=== PATIENT | male | born 1960 | race Caucasian/White ===

== ENCOUNTER 2016-06-17 20:45 | Emergency (ER) | payer OTHER ==
[2016-06-17] MEDS ORDERED: NS 1,000 ML IV ONE (21:29)
--- NOTE | 2016-06-17 21:29 | EDPHY ---
H & P Stated Complaint: diff urinating, pain in prostate HPI/ROS: HPI CHIEF COMPLAINT: Increased urinary frequency, dysuria, "My prostate may be inflamed" HISTORY OF PRESENT ILLNESS: This patient very pleasant 56-year-old male significant past medical history for neuroendocrine tumor, presents emergency room with progressively over the last week increased urinary frequency, dysuria , and some pain in between his scrotum and anus. He thinks he may have a prostate infection. patient tells me that he is on a trial of cancer medication is followed by Dr. Perez. he denies chills, rigors, fever, flank pain, blood in his urine. under the patient has been taking Bactrim x2 days and Augmentin x2 days prescribed by his primary care doctor. No formal urinalysis was performed. Past Medical History: Neuroendocrine tumor Past Surgical History: no significant surgical history Social History: denies daily use drugs alcohol tobacco products Family History: noncontributory ROS REVIEW OF SYSTEMS: A comprehensive 10 point review of systems is otherwise negative aside from elements mentioned in the history of present illness. Exam Constitutional triage nursing summary reviewed, vital signs reviewed, awake/ alert. Eyes normal conjunctivae and sclera, EOMI, PERRLA. HENT normal inspection, atraumatic, moist mucus membranes, no epistaxis, neck supple/ no meningismus, no raccoon eyes. Respiratory clear to auscultation bilaterally, normal breath sounds, no respiratory distress, no wheezing. Cardiovascular rate normal, regular rhythm, no murmur, no edema, distal pulses normal. Gastrointestinal soft, non-tender, no rebound, no guarding, normal bowel sounds, no distension, no pulsatile mass. Genitourinary exam: normal exam no testicular tenderness, circumcised , no lesions, no drainage, no discharge, no tenderness between his scrotum and anus where he is complaining of pain no signs of cellulitis or abscess. Musculoskeletal no midline vertebral tenderness, full range of motion, no calf swelling, no tenderness of extremities, no meningismus, good pulses, neurovascularly intact. Skin pink, warm, & dry, no rash, skin atraumatic. Neurologic awake, alert and oriented x 3, AAOx3, moves all 4 extremities equally, motor intact, sensory intact, CN II-XII intact, normal cerebellar, normal vision, normal speech. Psychiatric normal mood/affect. Heme/Lymph/Immune no lymphadenopathy. Differential Diagnosis: includes but is not limited to in a particular order, UTI, cystitis, prostatitis Medical Decision Making: This patient had an IV established obtain basic blood work checked basic blood work CBC and electrolytes, check urinalysis, there is no evidence of Kirk gangrene abscess or cellulitis or skin inflammation in between the scrotum and anus. I do not appreciate a mass. Patient may need a CT and pelvis with IV contrast evaluate this lower pelvic rectal perineal pain. Looking for a fluid collection, or inflammation Re-evaluation: CT scan of the abdomen pelvis with IV contrast The results of the study are negative for acute inflammatory process specifically no evidence of prostatitis , abscess, perirectal inflammation. it is noted that there is a rectal mass similar in size from previous CT scan also it is noted there are some new neuroendocrine lesions. The study was read by Dr. Kaplan. I viewed the images myself on the PACS system. [id number]: I did explain to the patient his CT results I did explain that has severe constipation on this as well. He does take daily narcotics, he most likely is severely constipated after taking narcotics. He does tell me that he tries to have a bowel movement once per day however he has not had 1 in 24 hours he will take stool softeners. He has no abdominal pain at this time, no nausea vomiting or fever. I explained that he should complete his course of antibiotics that he has been prescribed for his UTI however there is no indication that he has a urinary tract infection here is urinalysis clean, no white count, electrolytes appropriate good kidney function. I also explained that he needs return to the ER if he develops worsening abdominal pain, fever, vomiting. I also explained he should follow up Dr. Perez his cancer doctor about his CT results today. I did print his lab work and give them to him. I am unable to print his CT at this time is is not formally dictated. Prescription for MiraLax given patient understands return if worsening symptoms questions or concerns. On exam specifically rectal scrotal perineal I do not see any signs of infection specifically there is no signs of Kirk gangrene, abscess, cellulitis, redness, swelling or significant tenderness. He understands return if worsening symptoms. Source: Patient - Personal History Current Tetanus Diphtheria and Acellular Pertussis (TDAP): Yes - Medical/Surgical History Hx Asthma: No Hx Chronic Respiratory Disease: No Hx Diabetes: No Hx Cardiac Disease: No Hx Renal Disease: No Hx Cirrhosis: No Hx Alcoholism: No Hx HIV/AIDS: No Hx Splenectomy or Spleen Trauma: No Other PMH: PMH: NEURO ENDOCRINE TUMORS. PSH: KNEE - Social History Smoking Status: Never smoked Constitutional: Initial Vital Signs Temperature (C) 36.4 C 06/17/16 20:50 Heart Rate 90 06/17/16 20:50 Respiratory Rate 20 06/17/16 20:50 Blood Pressure 111/77 06/17/16 20:50 O2 Sat (%) 96 06/17/16 20:50 O2 Delivery Mode Room Air Allergies/Adverse Reactions: No Known Allergies Allergy (Unverified 06/17/16 20:49) Home Medications: Medication Instructions Recorded oxyCODONE IR [Oxycodone Ir (RX)] 5 mg PO 05/16/14 HYDROCODONE BIT/ACETAMINOPHEN 04/15/16 Polyethylene Glycol 3350 [Miralax 17 gm PO DAILY #2 pkt 06/17/16 17 gm (*)] Medical Decision Making - Data Points Laboratory Results: Laboratory Results 06/17/16 21:40 06/17/16 21:40 06/17/16 06/17/16 21:40 20:55 WBC 7.70 10^3/uL (3.80-9.50) RBC 4.44 10^6/uL (4.40-6.38) Hgb 13.8 g/dL (13.7-17.5) Hct 40.2 % (40.0-51.0) MCV 90.5 fL (81.5-99.8) MCH 31.1 pg (27.9-34.1) MCHC 34.3 g/dL (32.4-36.7) RDW 13.7 % (11.5-15.2) Plt Count 268 10^3/uL (150-400) MPV 10.1 fL (8.7-11.7) Neut % (Auto) 75.4 H % (39.3-74.2) Lymph % (Auto) 14.3 L % (15.0-45.0) [place] % (Auto) 8.6 % (4.5-13.0) Eos % (Auto) 0.9 % (0.6-7.6) Baso % (Auto) 0.5 % (0.3-1.7) Nucleat RBC Rel Count 0.0 % (0.0-0.2) Absolute Neuts (auto) 5.81 10^3/uL (1.70-6.50) Absolute Lymphs (auto) 1.10 10^3/uL (1.00-3.00) Absolute Monos (auto) 0.66 10^3/uL (0.30-0.80) Absolute Eos (auto) 0.07 10^3/uL (0.03-0.40) Absolute Basos (auto) 0.04 10^3/uL (0.02-0.10) Absolute Nucleated RBC 0.00 10^3/uL (0-0.01) Immature Gran % 0.3 % (0.0-1.1) Immature Gran # 0.02 10^3/uL (0.00-0.10) Sodium 136 mEq/L (134-144) Potassium 4.7 mEq/L (3.5-5.2) Chloride 99 mEq/L (97-110) Carbon Dioxide 23 mEq/l (22-31) Anion Gap 14 mEq/L (8-16) BUN 21 mg/dL (7-23) Creatinine 1.1 mg/dL (0.7-1.3) Estimated GFR > 60 Glucose 89 mg/dL (70-100) Calcium 9.6 mg/dL (8.5-10.4) Urine Color YELLOW Urine Appearance CLEAR Urine pH 6.0 (5.0-7.5) Ur Specific [place] 1.003 (1.002-1.030) Urine Protein NEGATIVE (NEGATIVE) Urine Ketones NEGATIVE (NEGATIVE) Urine Blood NEGATIVE (NEGATIVE) Urine Nitrate NEGATIVE (NEGATIVE) Urine Bilirubin NEGATIVE (NEGATIVE) Urine Urobilinogen NEGATIVE EU (0.2-1.0) Ur Leukocyte Esterase NEGATIVE (NEGATIVE) Ur Culture Indicated? NOT INDICATED (NI) Urine Glucose NEGATIVE (NEGATIVE) Medications Given: Discontinued Medications Sodium Chloride (Ns) 1,000 mls @ 0 mls/hr IV ONCE ONE PRN Reason: Wide Open Stop: 06/17/16 21:30 Last Admin: 06/17/16 21:56 Dose: 1,000 mls Morphine Sulfate (Morphine) 4 mg IVP EDNOW ONE Stop: 06/17/16 21:37 Last Admin: 06/17/16 21:57 Dose: 4 mg Ondansetron HCl (Zofran) 4 mg IVP EDNOW ONE Stop: 06/17/16 21:37 Last Admin: 06/17/16 21:57 Dose: 4 mg Departure - Departure Disposition: Home, Routine, Self-Care Clinical Impression: Constipation Qualifiers: Constipation type: slow transit constipation Qualifier Code: (K59.01) Slow transit constipation Condition: Good Instructions: Constipation (ED) Additional Instructions: 1. Please return to the emergency room if you develop any worsening symptoms includes worsening abdominal pain, fever, vomiting. please take MiraLax as prescribed. Please follow up with Dr. Perez 2. please return if he develops worsening pain, fever, swelling or questions or concerns Referrals: Khurram Perez MD [Primary Care Provider] - As per Instructions Prescriptions: Polyethylene Glycol 3350 [Miralax 17 gm (*)] 17 gm PO DAILY #2 pkt
[2016-06-17] MEDS ORDERED: ONDANSETRON 4 MG/2 ML VIAL IVP ONE (21:36)
[2016-06-17 21:38] LABS: COLOR YELLOW; LEUKOCYTE ESTERASE,URINE NEGATIVE (NEGATIVE); NITRITE,URINE NEGATIVE (NEGATIVE)
[2016-06-17 21:49] LABS: % IMMATURE GRANULYOCYTES 0.3 % (0.0-1.1); ABSOLUTE IMMATURE GRANULOCYTES 0.02 10^3/uL (0.00-0.10); ADD DIFF? NO; ADD MORPH? NO; ADD SCAN? NO; ATYPICAL LYMPHOCYTE FLAG 10 (0-99); FRAGMENT RBC FLAG 0 (0-99); HEMATOCRIT 40.2 % (40.0-51.0); HEMOGLOBIN 13.8 g/dL (13.7-17.5); LEFT SHIFT FLG 0 (0-99); LIPEMIA HEMOLYSIS FLAG 90 (0-99); MEAN CELL HEMOGLOBIN 31.1 pg (27.9-34.1); MEAN CELL HEMOGLOBIN CONCENTR. 34.3 g/dL (32.4-36.7); MEAN CELL VOLUME 90.5 fL (81.5-99.8); MEAN PLATELET VOLUME 10.1 fL (8.7-11.7); PLATELET CLUMPS FLAG 10 (0-99); PLATELET COUNT 268 10^3/uL (150-400); RED BLOOD CELL COUNT 4.44 10^6/uL (4.40-6.38); RED CELL DISTRIBUTION WIDTH 13.7 % (11.5-15.2)
[2016-06-17 22:04] LABS: ANION GAP 14 mEq/L (8-16); CALCIUM 9.6 mg/dL (8.5-10.4); CARBON DIOXIDE 23 mEq/l (22-31); CHLORIDE 99 mEq/L (97-110); CREATININE 1.1 mg/dL (0.7-1.3); GLOMERULAR FILTRATION RATE > 60; GLUCOSE 89 mg/dL (70-100); POTASSIUM 4.7 mEq/L (3.5-5.2); SODIUM 136 mEq/L (134-144)
[2016-06-17 22:06] VITALS: PULSE 72; RESP 12
[2016-06-17] MEDS ORDERED: IOPAMIDOL (ISOVUE-300) 50 ML VIAL IV ONE (22:23)
--- NOTE | 2016-06-17 23:51 | CT ---
CT Scan of the Abdomen and Pelvis (With Contrast) June 17, 2016 Indication: Low pelvic pain with urination. Suspected prostatitis. Known metastatic neuroendocrine t umor. Technique: No oral or rectal contrast. 90 mL of Isovue 300 were given intravenously by machine power injection. Multidetector helical CT imaging was performed from the diaphragm to the symphysis pubis . Dose reduction techniques were utilized. Comparison: CT abdomen pelvis dated April 15, 2016 Findings: No rim-enhancing fluid collection within the prostate gland. The previously noted dense hem orrhage in the right peripheral zone of the prostate gland has resolved. No subcutaneous gas, fluid c ollection, or stranding in the perineum. The urinary bladder is moderately distended (less so Novembe r 2015). No hydronephrosis or ureteral calculi. A 1 cm cyst with peripheral punctate calcification em anating off the right kidney is unchanged. The right pararectal mass on image 260 of series 4, posterior and separate from the prostate gland, m easuring 4.1 x 3.8 cm is unchanged since April 2016. Numerous low attenuation lesions scattered throughout the liver have minimally increased in volume si nce April 2016. A insurance sales representative lesion in the dome of the liver adjacent the middle hepatic vein on image 49 of series 4 now measures 1.6 x 1.6 cm (previously 1.0 x 1.0 cm). Two enlarged right commo n iliac lymph nodes have increased in size. For example, a right common iliac node image 170 of serie s 4 now measures 2.3 x 1.9 cm (previously 2.3 x 1.5 cm). Several tiny implants are present in the ret roperitoneal space adjacent bilateral kidneys and psoas muscles. Several new sclerotic lesions have developed and T10, T11, anterior L5 vertebral body, and left-sided ilium since April 2016. The ascending and transverse colon is redundant and markedly filled with stool. The low descending an d sigmoid colon are decompressed with limited volume retained stool. A transition in the left mid abd omen on images 104 through 153 of series 4 is present without evidence of a discrete mass. Small yocasta l is normal caliber with increased intraluminal fluid. The lung bases are clear. No pleural effusions. The spleen, pancreas, gallbladder, and adrenal glands are normal. Impression: 1. No evidence of prostatic abscess or localized inflammatory process in the perineum or pelvis. 2. No hydronephrosis or ureteral calculi. 3. Suspect progression of disease evidenced by increasing in size liver lesions and right common aurelio c lymphadenopathy. 4. New and increasing sclerotic lesions throughout the spine and pelvis may represent progression of disease or reparative response if the patient is undergoing chemotherapy. 5. Marked constipation. Equivocal low-grade partial large bowel obstruction in the left mid abdomen ( similar April 2016). Comment: Results were discussed with Dr. Louie 11:30 p.m. June 17, 2016.
[2016-06-17 23:56] VITALS: BP 110/65; TEMP 98.6; O2SAT 94
== END 2016-06-17 23:57 | disposition home or self-care (01) ==
DX: K59.01 Slow transit constipation (principal)
CPT/HCPCS: 74177; 96361; 96374; 96375; 99285; J2405; Q9967

== ENCOUNTER → 2016-06-23 | Outpatient (CLI) | payer OTHER ==
[~2016-06-23] MED LIST: IOPAMIDOL (ISOVUE-300) 50 ML VIAL IV ONE
--- NOTE | 2016-06-23 12:53 | CT ---
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 Comparison: June 23, 2016 CT abdomen and pelvis at [facility], and April 03, 2016 [facility] CT scan. Technique: 2.5-mm contiguous helical axial scanning through the pelvis after the uneventful administ ration of 90 mL of Isovue-300. Routine reconstructions were performed in the coronal and sagittal gentry barak. Dose reduction technique was performed. Findings: The perirectal mass best seen on series 3 image 140 on today's examination measured 3.2 x 3.8. This is slightly smaller than the previous study from June 17, however, there is slightly mo re air in this area making the measurement likely a little more accurate. This is unchanged compared to the March study. The retroperitoneal implant seen today on series 3 image 35, measuring 17 x 24 mm, has increased in size (previously 14 x 18 mm). There is increasing sclerotic disease in the pelvi s and lower lumbar spine. Impression: 1. Increasing retroperitoneal adenopathy and increasing bony metastatic disease as compared to 2015. This represents progression of disease. The rectal mass is stable. 2. Interval resolution of previous suspected partial small bowel obstruction.
== END ==
LOC: FIMAGING 10:34
PROVIDERS: ATTEND Internal Medicine Hematology & Oncology
DX: C79.51 Secondary malignant neoplasm of bone (principal); C7A.026 Malignant carcinoid tumor of the rectum; R59.0 Localized enlarged lymph nodes
CPT/HCPCS: 72193; Q9967

== ENCOUNTER 2017-03-02 23:18 | Emergency (ER) | payer OTHER ==
[2017-03-02 23:23] VITALS: RESP 18; O2SAT 99
[2017-03-02] MEDS: NS 1,000 ML IV ONE (23:47)
[2017-03-03 00:05] LABS: % IMMATURE GRANULYOCYTES 0.3 % (0.0-1.1); ABSOLUTE IMMATURE GRANULOCYTES 0.01 10^3/uL (0.00-0.10); ADD DIFF? NO; ADD MORPH? NO; ADD SCAN? NO; ATYPICAL LYMPHOCYTE FLAG 0 (0-99); FRAGMENT RBC FLAG 0 (0-99); HEMOGLOBIN 14.4 g/dL (13.7-17.5); LEFT SHIFT FLG 20 (0-99); LIPEMIA HEMOLYSIS FLAG 90 (0-99); MEAN CELL HEMOGLOBIN 28.2 pg (27.9-34.1); MEAN CELL HEMOGLOBIN CONCENTR. 34.3 g/dL (32.4-36.7); MEAN CELL VOLUME 82.2 fL (81.5-99.8); MEAN PLATELET VOLUME 10.8 fL (8.7-11.7); PLATELET CLUMPS FLAG 10 (0-99); PLATELET COUNT 143 10^3/uL (150-400); RED BLOOD CELL COUNT 5.11 10^6/uL (4.40-6.38); RED CELL DISTRIBUTION WIDTH 13.7 % (11.5-15.2)
[2017-03-03 00:16] LABS: ALANINE AMINOTRANSFERASE 39 IU/L (21-72); ALBUMIN 4.8 g/dL (3.5-5.0); ALKALINE PHOSPHATASE 62 IU/L (38-126); ANION GAP 17 mEq/L (8-16); ASPARTATE AMINOTRANSFERASE 30 IU/L (17-59); BILIRUBIN,TOTAL 0.8 mg/dL (0.1-1.4); BILIRUBIN-CONJUGATED 0.3 mg/dL (0.0-0.5); BILIRUBIN-UNCONJUGATED 0.5 mg/dL (0.0-1.1); CALCIUM 8.6 mg/dL (8.5-10.4); CARBON DIOXIDE 19 mEq/l (22-31); CHLORIDE 103 mEq/L (97-110); CREATININE 1.1 mg/dL (0.7-1.3); GLOMERULAR FILTRATION RATE > 60; GLUCOSE 114 mg/dL (70-100); POTASSIUM 3.2 mEq/L (3.5-5.2); SODIUM 139 mEq/L (134-144); TOTAL PROTEIN 7.7 g/dL (6.3-8.2)
[2017-03-03] MEDS ORDERED: IOPAMIDOL (ISOVUE-300) 100 ML BTL ONE (00:38)
--- NOTE | 2017-03-03 00:58 | EDPHY ---
H & P Stated Complaint: left Abd pain, diarrhea with bright red blood x10 days - Personal History Current Tetanus/Diphtheria Vaccine: Unsure Current Tetanus Diphtheria and Acellular Pertussis (TDAP): Unsure - Medical/Surgical History Hx Asthma: No Hx Chronic Respiratory Disease: No Hx Diabetes: No Hx Cardiac Disease: No Hx Renal Disease: No Hx Cirrhosis: No Hx Alcoholism: No Hx HIV/AIDS: No Hx Splenectomy or Spleen Trauma: No Other PMH: PMH: NEURO ENDOCRINE TUMORS. PSH: KNEE - Social History Smoking Status: Never smoked Time Seen by Provider: 03/02/17 23:35 HPI/ROS: Chief complaint: Abdominal pain with bloody diarrhea History of present illness: This is a 56-year-old male who presents to the emergency department for evaluation of abdominal pain with bloody diarrhea. Patient reports he has been traveling through [place] for the last few weeks. While there he developed the abdominal pain. He states he has had intermittent diarrhea while there. He has had some nausea and vomiting. He returned home this evening. Upon getting off of the airplane he had a bout of watery diarrhea that had bright red blood in it. He therefore presents here for further evaluation and care. He states the pain is primarily in the left, lower aspect of the abdomen. He denies other associated signs or symptoms including no fevers, no urinary symptoms. Review of systems: A 10 point review of systems was obtained and other than described above was negative (Damián Bates) - Physical Exam Exam: General Appearance: Alert, nontoxic. Eyes: Pupils equal and round no pallor or injection. ENT, Mouth: Mucous membranes moist. Respiratory: There are no retractions, lungs are clear to auscultation. Cardiovascular: Regular rate and rhythm. Gastrointestinal: Bowel sounds present. Abdomen is soft and nondistended. Diffuse tenderness when maximal intensity in the left lower quadrant. No peritoneal signs. Neurological: Alert and oriented x4. Strength and sensation intact and symmetrical. Skin: Warm and dry, no rashes. Musculoskeletal: Neck is supple non tender. Extremities are symmetrical, full range of motion. Psychiatric: Patient is oriented X 3, there is no agitation. (Damián Bates) Constitutional: Initial Vital Signs Temperature (C) 36.5 C 03/02/17 23:20 Heart Rate 96 03/02/17 23:20 Respiratory Rate 18 03/02/17 23:20 Blood Pressure 116/85 H 03/02/17 23:20 O2 Sat (%) 99 03/02/17 23:20 O2 Delivery Mode Room Air Allergies/Adverse Reactions: No Known Allergies Allergy (Verified 03/02/17 23:24) Home Medications: Medication Instructions Recorded oxyCODONE IR [Oxycodone Ir (RX)] 5 mg PO 05/16/14 HYDROCODONE BIT/ACETAMINOPHEN 04/15/16 Polyethylene Glycol 3350 [Miralax 17 gm PO DAILY #2 pkt 06/17/16 17 gm (*)] AFINITOR 03/02/17 traMADol 03/02/17 Medical Decision Making ED Course/Re-evaluation: Patient seen under the supervision of my secondary supervising physician Dr. Alverto Louie for abdominal pain and bloody diarrhea. Initial evaluation was begun. Care of patient is turned over to my attending physician Dr. Louie at end of shift pending CT and stool studies. (Damián Bates) 0118: CT report called to me by Dr. Arun Figueredo. There is significant progression of the metastatic disease of his neuroendocrine tumors. Additionally he has fluid-filled small bowel and large bowel most likely consistent with enteritis. There is no evidence obstruction. Or bowel wall thickening. No free air or free fluid. [id number]: I did go re-evaluate the patient. Resting comfortably. Abdomen is soft nontender. No significant left lower quadrant pain. Feels much better after IV fluids. CT scan reviewed. I updated the patient on these findings. Stool studies pending. He would like to go home. He understands call for stool study results. Additionally understands return to the ER for worsening abdominal pain fever vomiting. Additionally do recommend he follows up with his neuroendocrine tumor physician about a CT scan findings today. (Alverto Louie) Differential Diagnosis: Included but not limited to diverticulitis, colitis, biliary tract disease, pancreatitis, traveler's diarrhea (Damián Bates) - Data Points Laboratory Results: Laboratory Results 03/02/17 23:44 03/02/17 23:44 03/03/17 03/03/17 03/02/17 02:35 00:45 23:44 WBC RBC Hgb Hct MCV MCH MCHC RDW Plt Count MPV Neut % (Auto) Lymph % (Auto) [place] % (Auto) Eos % (Auto) Baso % (Auto) Nucleat RBC Rel Count Absolute Neuts (auto) Absolute Lymphs (auto) Absolute Monos (auto) Absolute Eos (auto) Absolute Basos (auto) Absolute Nucleated RBC Immature Gran % Immature Gran # Sodium 139 mEq/L mEq/L (134-144) Potassium 3.2 mEq/L L mEq/L (3.5-5.2) Chloride 103 mEq/L mEq/L (97-110) Carbon Dioxide 19 mEq/l L mEq/l (22-31) Anion Gap 17 mEq/L H mEq/L (8-16) BUN 28 mg/dL H mg/dL (7-23) Creatinine 1.1 mg/dL mg/dL (0.7-1.3) Estimated GFR > 60 Glucose 114 mg/dL H mg/dL (70-100) Calcium 8.6 mg/dL mg/dL (8.5-10.4) Total Bilirubin 0.8 mg/dL mg/dL (0.1-1.4) Conjugated Bilirubin 0.3 mg/dL mg/dL (0.0-0.5) Unconjugated Bilirubin 0.5 mg/dL mg/dL (0.0-1.1) AST 30 IU/L IU/L (17-59) ALT 39 IU/L IU/L (21-72) Alkaline Phosphatase 62 IU/L IU/L (38-126) Total Protein 7.7 g/dL g/dL (6.3-8.2) Albumin 4.8 g/dL g/dL (3.5-5.0) Lipase 60 IU/L IU/L (23-300) Urine Color YELLOW Urine Appearance CLEAR Urine pH 5.0 (5.0-7.5) Ur Specific [place] > 1.035 H (1.002-1.030) Urine Protein NEGATIVE (NEGATIVE) Urine Ketones 1+ H (NEGATIVE) Urine Blood NEGATIVE (NEGATIVE) Urine Nitrate NEGATIVE (NEGATIVE) Urine Bilirubin NEGATIVE (NEGATIVE) Urine Urobilinogen NEGATIVE EU EU (0.2-1.0) Ur Leukocyte Esterase NEGATIVE (NEGATIVE) Urine RBC NONE SEEN /hpf /hpf (0-3) Urine WBC 3-5 /hpf H /hpf (0-3) Ur Epithelial Cells TRACE /lpf /lpf (NONE-1+) Urine Glucose NEGATIVE (NEGATIVE) Stool Concentration Pending Stool Occult Bld Scrn NEGATIVE (NEGATIVE) Stool Ova & Parasites Pending Parasite Trichrome Pending Direct Microscop Exam Pending 03/02/17 23:44 WBC 2.92 10^3/uL L 10^3/uL (3.80-9.50) RBC 5.11 10^6/uL 10^6/uL (4.40-6.38) Hgb 14.4 g/dL g/dL (13.7-17.5) Hct 42.0 % % (40.0-51.0) MCV 82.2 fL fL (81.5-99.8) MCH 28.2 pg pg (27.9-34.1) MCHC 34.3 g/dL g/dL (32.4-36.7) RDW 13.7 % % (11.5-15.2) Plt Count 143 10^3/uL L 10^3/uL (150-400) MPV 10.8 fL fL (8.7-11.7) Neut % (Auto) 80.3 % H % (39.3-74.2) Lymph % (Auto) 9.9 % L % (15.0-45.0) [place] % (Auto) 6.8 % % (4.5-13.0) Eos % (Auto) 2.4 % % (0.6-7.6) Baso % (Auto) 0.3 % % (0.3-1.7) Nucleat RBC Rel Count 0.0 % % (0.0-0.2) Absolute Neuts (auto) 2.34 10^3/uL 10^3/uL (1.70-6.50) Absolute Lymphs (auto) 0.29 10^3/uL L 10^3/uL (1.00-3.00) Absolute Monos (auto) 0.20 10^3/uL L 10^3/uL (0.30-0.80) Absolute Eos (auto) 0.07 10^3/uL 10^3/uL (0.03-0.40) Absolute Basos (auto) 0.01 10^3/uL L 10^3/uL (0.02-0.10) Absolute Nucleated RBC 0.00 10^3/uL 10^3/uL (0-0.01) Immature Gran % 0.3 % % (0.0-1.1) Immature Gran # 0.01 10^3/uL 10^3/uL (0.00-0.10) Sodium Potassium Chloride Carbon Dioxide Anion Gap BUN Creatinine Estimated GFR Glucose Calcium Total Bilirubin Conjugated Bilirubin Unconjugated Bilirubin AST ALT Alkaline Phosphatase Total Protein Albumin Lipase Urine Color Urine Appearance Urine pH Ur Specific [place] Urine Protein Urine Ketones Urine Blood Urine Nitrate Urine Bilirubin Urine Urobilinogen Ur Leukocyte Esterase Urine RBC Urine WBC Ur Epithelial Cells Urine Glucose Stool Concentration Stool Occult Bld Scrn Stool Ova & Parasites Parasite Trichrome Direct Microscop Exam Medications Given: Discontinued Medications Sodium Chloride (Ns) 1,000 mls @ 0 mls/hr IV EDNOW ONE; Wide Open PRN Reason: Protocol Stop: 03/02/17 23:41 Last Admin: 03/02/17 23:47 Dose: 1,000 mls Sodium Chloride (Ns) 1,000 mls @ 0 mls/hr IV EDNOW ONE; Wide Open PRN Reason: Protocol Stop: 03/03/17 01:04 Last Admin: 03/03/17 01:30 Dose: 1,000 mls Ondansetron HCl (Zofran) 4 mg IVP EDNOW ONE Stop: 03/03/17 00:38 Last Admin: 03/03/17 02:43 Dose: Not Given Departure - Departure Disposition: Home, Routine, Self-Care Clinical Impression: Diarrhea Qualifiers: Diarrhea type: unspecified type Qualified Code(s): R19.7 - Diarrhea, unspecified Abdominal pain Qualifiers: Abdominal location: generalized Qualified Code(s): R10.84 - Generalized abdominal pain Condition: Good Instructions: Acute Diarrhea (ED), Acute Abdominal Pain (ED) Additional Instructions: 1. Please return to the emergency room if you have worsening abdominal pain fever or vomiting. Referrals: NONE *PRIMARY CARE P,. [Primary Care Provider] - As per Instructions
[2017-03-03] MEDS ORDERED: NS 1,000 ML IV ONE (01:03)
[2017-03-03] MEDS: NS 1,000 ML IV ONE (01:30)
[2017-03-03] MEDS: ONDANSETRON 4 MG/2 ML VIAL IVP ONE (02:43)
[2017-03-03 02:52] LABS: OCCULT BLOOD FECES NEGATIVE (NEGATIVE)
[2017-03-03 02:54] LABS: COLOR YELLOW; LEUKOCYTE ESTERASE,URINE NEGATIVE (NEGATIVE); NITRITE,URINE NEGATIVE (NEGATIVE)
[2017-03-03 02:58] LABS: RBC,URINE NONE SEEN /hpf (0-3)
[2017-03-03 03:54] VITALS: BP 126/74; PULSE 88; TEMP 97.5
== END 2017-03-03 03:53 | disposition home or self-care (01) ==
DX: R19.7 Diarrhea, unspecified (principal); R10.84 Generalized abdominal pain; E86.9 Volume depletion, unspecified
CPT/HCPCS: 74177; 96360; 96361; 99285; J2405; Q9967

== ENCOUNTER → 2017-04-27 | Outpatient (CLI) | payer OTHER | LOC: FIMAGING 16:54 | PROVIDERS: ATTEND Internal Medicine Hematology & Oncology | DX: M79.89 Other specified soft tissue disorders (principal); C7A.026 Malignant carcinoid tumor of the rectum; C80.1 Malignant (primary) neoplasm, unspecified ==

== ENCOUNTER → 2017-05-15 | Outpatient (CLI) | payer OTHER | LOC: BMCIMAGING 09:22 | PROVIDERS: ATTEND Podiatrist Foot & Ankle Surgery | DX: S86.111A Strain of other muscle(s) and tendon(s) of posterior muscle group at lower leg level, right leg, initial encounter (principal); X58.XXXA Exposure to other specified factors, initial encounter; M17.11 Unilateral primary osteoarthritis, right knee ==

== ENCOUNTER 2017-05-17 23:55 | Emergency (ER) | payer OTHER ==
--- NOTE | 2017-05-18 00:06 | EDPHY ---
H & P Stated Complaint: "3 DAYS ACHINESS THINK I HAVE A VIRUS" Source: Patient Exam Limitations: No limitations - Personal History Current Tetanus Diphtheria and Acellular Pertussis (TDAP): No - Medical/Surgical History Hx Asthma: No Hx Chronic Respiratory Disease: No Hx Diabetes: No Hx Cardiac Disease: No Hx Renal Disease: No Hx Cirrhosis: No Hx Alcoholism: No Hx HIV/AIDS: No Hx Splenectomy or Spleen Trauma: No Other PMH: PMH: NEURO ENDOCRINE TUMORS. PSH: KNEE - Social History Smoking Status: Never smoked Time Seen by Provider: 05/18/17 00:05 HPI/ROS: HPI: This is a 57-year-old male who presents with Chief Complaint: "3 DAYS ACHINESS THINK I HAVE A VIRUS" Location: Body Quality: Achiness Duration: 1 day Signs and Symptoms: No fever, no chills, no nausea, no vomiting, no cough, no sore throat, no ear pain, no abdominal pain, chest pain 1 shortness of breath Timing: Sudden, constant Severity: Moderate to severe Context: Patient has a history of neuroendocrine tumor status post radiation and stopped taking oral chemotherapy medication 3 days ago. He reports for the last 2 days he has felt fine but today "it him like a bus." Complains of generalized, constant body aches and moderate fatigue since yesterday around 2 PM. He is also worried he may have a virus but he is not sure. He researched on the Internet and thinks it could be medication withdrawal. He denies fever, nausea, vomiting, cough, sore throat. Followed by Dr. Khurram Perez. Eating and drinking normally. No urinary symptoms. Modifying Factors: None Comment: ROS: see HPI Constitutional: No fever, no chills, no weight loss Eyes: No blurred vision Respiratory: No shortness of breath, no cough Cardiovascular: No chest pain Gastrointestinal: No nausea, no vomiting, no diarrhea Genitourinary: No dysuria Extremities: No myalgias Neurologic: No weakness, no numbness Skin: No rashes Hematologic: No bruising, no bleeding PMH: NEURO ENDOCRINE TUMORS PSH: KNEE Social history: . CONSTITUTIONAL: Nontoxic appearing adult male, pleasant cooperative, awake and alert, no obvious distress HEENT: Atraumatic and normocephalic, PERRL, EOMI. Tympanic membranes clear. Oropharynx clear, no exudate and moist pink mucosa. Airway patent. No lymphadenopathy. No meningismus. Cardiovascular: Normal S1/S2, regular rate, regular rhythm, without murmur rub or gallop. PULMONARY/CHEST: Symmetrical and nontender. Clear to auscultation bilaterally. Good air movement. No accessory muscle usage. ABDOMEN: Soft, nondistended, nontender, no rebound, no guarding, no peritoneal signs, no masses or organomegaly. No CVAT. EXTREMITIES: 2/2 pulses, strength 5/5, no deformities, no clubbing, no cyanosis or edema. NEUROLOGICAL: no focal neuro deficits. GCS 15. SKIN: Warm and dry, no erythema. no rash. Good capillary refill. (Mirna Fowler) Constitutional: Initial Vital Signs Temperature (C) 37.0 C 05/17/17 23:59 Heart Rate 85 05/17/17 23:59 Respiratory Rate 14 05/17/17 23:59 Blood Pressure 131/92 H 05/17/17 23:59 O2 Sat (%) 97 05/17/17 23:59 O2 Delivery Mode Room Air Allergies/Adverse Reactions: No Known Allergies Allergy (Verified 03/02/17 23:24) Home Medications: Medication Instructions Recorded oxyCODONE IR [Oxycodone Ir (RX)] 5 mg PO 05/16/14 HYDROCODONE BIT/ACETAMINOPHEN 04/15/16 Polyethylene Glycol 3350 [Miralax 17 gm PO DAILY #2 pkt 06/17/16 17 gm (*)] traMADol 03/02/17 Medical Decision Making ED Course/Re-evaluation: Labs, blood cultures, influenza, IV fluids, IV medications ordered Vital signs reviewed and stable. Patient given 2 L of normal saline, IV Toradol, IV Ativan upon arrival Afebrile and no systemic signs. 0100: End of shift. Signed out to Dr. Tuttle and laboratory results and final disposition. (Mirna Fowler) I took over care of this patient at 1:00 a.m.. He is here with complaint of generalized fatigue and myalgias and arthralgias. He has had no cough and no shortness of breath. Denies headache. He has a history of neuroendocrine tumors and status post radiation. He reports that he came off of his oral chemotherapeutic 3 days ago as recommended by Dr. Perez. The patient was re- evaluated at 2:30 a.m. by myself. Results of his blood work, and emergency department workup were discussed with him. He was negative for influenza a and B. His vital signs were reviewed and are stable. He has been afebrile. He is feeling better but still has some generalized myalgias and arthralgias. Differential diagnosis includes viral syndrome versus possible reaction to coming off recent medications as noted. I feel that serious bacterial infection is unlikely. I will give him Flexeril to go home with. He will follow up with his oncologist, Dr. Perez tomorrow for re-evaluation. He feels comfortable with this plan. Return to emergency department precautions were thoroughly reviewed with him. All of his questions were answered. He was discharged in good condition with a sober ride to get him home. (Nael Tuttle) Differential Diagnosis: Differential including but not limited to viral syndromes including influenza, urinary tract infection, pneumonia, medication withdrawal and sepsis. (Mirna Fowler) - Data Points Laboratory Results: Laboratory Results 05/18/17 00:35 05/18/17 00:35 05/18/17 05/18/17 05/18/17 03:04 01:00 00:35 WBC RBC Hgb Hct MCV MCH MCHC RDW Plt Count MPV Neut % (Auto) Lymph % (Auto) [place] % (Auto) Eos % (Auto) Baso % (Auto) Nucleat RBC Rel Count Absolute Neuts (auto) Absolute Lymphs (auto) Absolute Monos (auto) Absolute Eos (auto) Absolute Basos (auto) Absolute Nucleated RBC Immature Gran % Immature Gran # VBG Lactic Acid Sodium Potassium Chloride Carbon Dioxide Anion Gap BUN Creatinine Estimated GFR Glucose Calcium Creatine Kinase 235 IU/L H IU/L (0-224) CK-MB (CK-2) Fraction 1.78 ng/mL ng/mL (0.00-3.19) CK-MB (CK-2) % 0.8 % % (0.0-4.0) Creatine Kinase Interp NEGATIVE (NEGATIVE) Urine Color YELLOW Urine Appearance CLEAR Urine pH 6.0 (5.0-7.5) Ur Specific [place] 1.025 (1.002-1.030) Urine Protein 1+ H (NEGATIVE) Urine Ketones NEGATIVE (NEGATIVE) Urine Blood NEGATIVE (NEGATIVE) Urine Nitrate NEGATIVE (NEGATIVE) Urine Bilirubin NEGATIVE (NEGATIVE) Urine Urobilinogen NEGATIVE EU EU (0.2-1.0) Ur Leukocyte Esterase NEGATIVE (NEGATIVE) Urine RBC 1-3 /hpf /hpf (0-3) Urine WBC 1-3 /hpf /hpf (0-3) Ur Epithelial Cells TRACE /lpf /lpf (NONE-1+) Urine Mucus 3+ /lpf H /lpf (NONE-1+) Urine Glucose 2+ H (NEGATIVE) Nasal Influenza A PCR NEGATIVE FOR FLU A (NEGATIVE) Nasal Influenza B PCR NEGATIVE FOR FLU B (NEGATIVE) 05/18/17 05/18/17 05/18/17 00:35 00:35 00:35 WBC 9.06 10^3/uL 10^3/uL (3.80-9.50) RBC 4.03 10^6/uL L 10^6/uL (4.40-6.38) Hgb 11.3 g/dL L g/dL (13.7-17.5) Hct 32.5 % L % (40.0-51.0) MCV 80.6 fL L fL (81.5-99.8) MCH 28.0 pg pg (27.9-34.1) MCHC 34.8 g/dL g/dL (32.4-36.7) RDW 14.0 % % (11.5-15.2) Plt Count 198 10^3/uL 10^3/uL (150-400) MPV 10.5 fL fL (8.7-11.7) Neut % (Auto) 85.4 % H % (39.3-74.2) Lymph % (Auto) 5.0 % L % (15.0-45.0) [place] % (Auto) 8.4 % % (4.5-13.0) Eos % (Auto) 0.2 % L % (0.6-7.6) Baso % (Auto) 0.3 % % (0.3-1.7) Nucleat RBC Rel Count 0.0 % % (0.0-0.2) Absolute Neuts (auto) 7.74 10^3/uL H 10^3/uL (1.70-6.50) Absolute Lymphs (auto) 0.45 10^3/uL L 10^3/uL (1.00-3.00) Absolute Monos (auto) 0.76 10^3/uL 10^3/uL (0.30-0.80) Absolute Eos (auto) 0.02 10^3/uL L 10^3/uL (0.03-0.40) Absolute Basos (auto) 0.03 10^3/uL 10^3/uL (0.02-0.10) Absolute Nucleated RBC 0.00 10^3/uL 10^3/uL (0-0.01) Immature Gran % 0.7 % % (0.0-1.1) Immature Gran # 0.06 10^3/uL 10^3/uL (0.00-0.10) VBG Lactic Acid 1.0 mmol/L mmol/L (0.7-2.1) Sodium 130 mEq/L L mEq/L (134-144) Potassium 4.4 mEq/L mEq/L (3.5-5.2) Chloride 100 mEq/L mEq/L (97-110) Carbon Dioxide 18 mEq/l L mEq/l (22-31) Anion Gap 12 mEq/L mEq/L (8-16) BUN 13 mg/dL mg/dL (7-23) Creatinine 0.7 mg/dL mg/dL (0.7-1.3) Estimated GFR > 60 Glucose 135 mg/dL H mg/dL (70-100) Calcium 8.6 mg/dL mg/dL (8.5-10.4) Creatine Kinase CK-MB (CK-2) Fraction CK-MB (CK-2) % Creatine Kinase Interp Urine Color Urine Appearance Urine pH Ur Specific [place] Urine Protein Urine Ketones Urine Blood Urine Nitrate Urine Bilirubin Urine Urobilinogen Ur Leukocyte Esterase Urine RBC Urine WBC Ur Epithelial Cells Urine Mucus Urine Glucose Nasal Influenza A PCR Nasal Influenza B PCR Medications Given: Discontinued Medications Cyclobenzaprine HCl (Flexeril 10 Mg Prepack#3) 1 btl TAKEHOME EDNOW ONE Stop: 05/18/17 02:46 Last Admin: 05/18/17 03:43 Dose: 1 btl Sodium Chloride (Ns) 2,300 mls @ 4,600 mls/hr 30 ml/kg infuse over 30 min ( 2300 ml) IV EDNOW ONE PRN Reason: Protocol Stop: 05/18/17 00:50 Last Admin: 05/18/17 00:38 Dose: 2,300 mls Ketorolac Tromethamine (Toradol) 30 mg IVP EDNOW ONE Stop: 05/18/17 00:22 Last Admin: 05/18/17 00:38 Dose: 30 mg Lorazepam (Ativan Injection) 1 mg IVP EDNOW ONE Stop: 05/18/17 00:22 Last Admin: 05/18/17 00:38 Dose: 1 mg Departure - Departure Disposition: Home, Routine, Self-Care Clinical Impression: Viral syndrome, Myalgia, Arthralgia Condition: Good Instructions: Cyclobenzaprine (By mouth), Viral Syndrome (ED) Additional Instructions: Read and follow provided instructions. Follow-up with your oncologist, Dr. Perez tomorrow for re-evaluation as discussed. It is very important you do this. Take medication as prescribed. You can start taking ibuprofen again tomorrow morning after 10:00 a.m.. Take only as needed for pain. Ibuprofen dosin mg every 6 hours with meals for the next 3 days only. Return to the emergency department for worsening symptoms, fever, vomiting, headache or other serious concerns. Referrals: Khurram Perez MD [Primary Care Provider] - As per Instructions
[2017-05-18] MEDS ORDERED: KETOROLAC 30 MG/1 ML SDV IVP ONE (00:21)
[2017-05-18] MEDS ORDERED: LORazepam 2 MG/ML INJ IVP ONE (00:21)
[2017-05-18] MEDS ORDERED: NS 2,300 ML IV ONE (00:21)
[2017-05-18 01:02] LABS: ANION GAP 12 mEq/L (8-16); CALCIUM 8.6 mg/dL (8.5-10.4); CARBON DIOXIDE 18 mEq/l (22-31); CHLORIDE 100 mEq/L (97-110); CREATININE 0.7 mg/dL (0.7-1.3); GLOMERULAR FILTRATION RATE > 60; GLUCOSE 135 mg/dL (70-100); POTASSIUM 4.4 mEq/L (3.5-5.2); SODIUM 130 mEq/L (134-144)
[2017-05-18] MEDS ORDERED: CYCLOBENZAPRINE 10MG PREPACK#3 BTL TAKEHOME ONE ×2 (02:43→02:45)
[2017-05-18 02:49] LABS: % IMMATURE GRANULYOCYTES 0.7 % (0.0-1.1); ABSOLUTE IMMATURE GRANULOCYTES 0.06 10^3/uL (0.00-0.10); ADD DIFF? NO; ADD MORPH? NO; ADD SCAN? NO; ATYPICAL LYMPHOCYTE FLAG 0 (0-99); FRAGMENT RBC FLAG 0 (0-99); HEMATOCRIT 32.5 % (40.0-51.0); HEMOGLOBIN 11.3 g/dL (13.7-17.5); LEFT SHIFT FLG 10 (0-99); LIPEMIA HEMOLYSIS FLAG 90 (0-99); MEAN CELL HEMOGLOBIN CONCENTR. 34.8 g/dL (32.4-36.7); MEAN CELL VOLUME 80.6 fL (81.5-99.8); MEAN PLATELET VOLUME 10.5 fL (8.7-11.7); PLATELET CLUMPS FLAG 40 (0-99); PLATELET COUNT 198 10^3/uL (150-400); RED BLOOD CELL COUNT 4.03 10^6/uL (4.40-6.38)
[2017-05-18 03:28] LABS: COLOR YELLOW; LEUKOCYTE ESTERASE,URINE NEGATIVE (NEGATIVE); NITRITE,URINE NEGATIVE (NEGATIVE)
[2017-05-18 03:29] LABS: CK-MB INTERPRETATION NEGATIVE (NEGATIVE); CREATINE KINASE-MB FRACTION 1.78 ng/mL (0.00-3.19)
[2017-05-18 03:38] LABS: MUCUS 3+ /lpf (NONE-1+)
[2017-05-18 03:50] VITALS: BP 111/67; PULSE 71; RESP 16; TEMP 98.1; O2SAT 97
== END 2017-05-18 03:49 | disposition home or self-care (01) ==
DX: B34.9 Viral infection, unspecified (principal); M79.1 Myalgia; M25.50 Pain in unspecified joint; E86.9 Volume depletion, unspecified
CPT/HCPCS: 96361; 96374; 96375; 99284; J1885; J2060

== ENCOUNTER → 2017-06-16 | Outpatient (CLI) | payer OTHER | LOC: FIMAGING 10:14 | DX: K59.00 Constipation, unspecified (principal) ==

== ENCOUNTER → 2017-07-05 | Outpatient (CLI) | payer OTHER ==
[~2017-07-05] MED LIST changes: +GADOBUTROL 10 ML VIAL IVP ONE; -IOPAMIDOL (ISOVUE-300) 50 ML VIAL IV ONE
== END ==
LOC: FIMAGING 09:33
PROVIDERS: ATTEND Internal Medicine Hematology & Oncology
DX: C7A.026 Malignant carcinoid tumor of the rectum (principal); C79.51 Secondary malignant neoplasm of bone
CPT/HCPCS: 70553; A9585

== ENCOUNTER 2017-07-15 16:59 | Inpatient (IN) | payer OTHER ==
--- NOTE | 2017-07-15 17:22 | EDPHY ---
HPI/HX/ROS/PE/MDM Narrative: CHIEF COMPLAINT: Left leg pain HPI: The patient is a 57 y/o male with neuroendocrine tumors arriving at the referral of his oncologist for acute left leg pain beginning this morning around 8:00am, about 9 hours ago. He recently stopped the chemotherapy medication Afinitor to participate in an upcoming trial. For the last 4 days he' s had pain "in my spine and down into my whole body." He expected some amount of pain he attributes to withdrawal from this medication due to similar symptoms during prior discontinuance of Afinitor. His pain seemed to improve this morning upon waking, but he then developed acute severe left leg pain that has been causing difficulty walking throughout the day. The "epicenter" of his pain is along his left upper medial thigh and groin and extends down into his knee and foot. He denies weakness or numbness in his leg. He took a dose of OxyContin, tramadol, and meloxicam with temporary relief for about 3 hours, but then his pain returned we he got up to walk to the bathroom. He then went to the cancer center and was referred here for evaluation. He has had some underlying pain in this leg, but says it is acutely worse today. He denies any recent trauma or illness. REVIEW OF SYSTEMS: Aside from elements discussed in the HPI, a comprehensive 10-point review of systems was reviewed and is negative. PMH: Neuroendocrine tumors ("100s of them"); lymphedema; chronic back pain SOCIAL HISTORY: Lives in [place]. Disabled. Oncologist: Dr. Perez Prior medical records reviewed including ED visit 05/17/17 for achiness. PHYSICAL EXAM: General:Patient is alert, in no acute distress. ENT:Eyes are normal to inspection. ENT inspection normal. Neck: Normal inspection. Full range of motion. Respiratory:No respiratory distress. Breath sounds normal bilaterally. Cardiovascular: Regular rate and rhythm. Strong peripheral pulses. Normal cap refill. Abdomen:The abdomen is nontender to palpation. There are no peritoneal signs. Back: Normal to inspection. No tenderness to palpation. Skin: Normal color. No rash. Warm and dry. Extremities: Tenderness left inguinal region. Normal appearance. Full range of motion. Neuro: Oriented x3. Normal motor function. Normal sensory function. ED Course: This is a 57 y/o male with a history of neuroendocrine tumors who presents from his oncologist's office with a 9-hour history of acute left leg pain and 4-day history of spinal pain after discontinuing his chemotherapy medication. He has mild tenderness in his left inguinal region on exam. He is neurovascularly intact. Plan for IV, labs, and imaging. Left leg US and x-rays of his left femur , pelvis, and lumbar spine ordered. He declines pain medication at this time. X-rays: sclerotic lesions on pelvis and femur. Reassessed patient and discussed findings. Recommended MRIs of lumbar spine and femur, which he agrees to. IV Toradol administered for pain. MRIs show diffuse bony metastases throughout his lumbar spine and pelvis and a soft tissue metastasis in his spinal cord that could be causing his pain today. Reassessed patient and discussed results. Carolina JOE, Dr. Cheek, but no response, spoke to RASHIDA Cruz, instead. He will consult and said they normally put someone on decadron 4mg IV q6. We will start this in the ED pending their consult. MDM: This patient presents with severe leg and back pain making it difficult to walk in setting of metastatic neuroendocrine CA. MRIs reveal numerous metastases, but concerningly a large tumor in the spinal canal which I believe is the cause of his symptoms. He is not currently displaying signs of spinal cord impairment. He is at high risk for developing this however, and will need further evaluation and treatment in the hospital. I see no signs of fracture, cauda equina syndrome, epidural abscess, sepsis or significant anemia. - Data Points Imaging Results: Imaging Impressions Pelvis X-Ray 07/15/17 17:24 Impression: 1. Bilateral sclerotic osseous metastatic lesions are relatively stable distribution when compared to prior CT study. No pathologic fracture. Extremity Venous Study 07/15/17 17:25 Impression: 1. No evidence of deep vein thrombosis in the left lower extremity. 2. Slow flow in deep venous structures of the left lower extremity could predispose to thrombosis in the future with clinical follow-up recommended. Results called and discussed with Alberto Lanier MD on 07/15/2017 at 18:54 Femur X-Ray 07/15/17 17:25 Impression: 1. Sclerotic lesion proximal shaft left femur. No pathologic fracture seen. Lumbar Spine X-Ray 07/15/17 17:25 Impression: 1. Diffuse sclerotic osseous metastatic lesions that may progressed at L4 and L5 segment levels. If indicated, consider correlation with MRI lumbar spine without and with contrast to evaluate for possible epidural extension of tumor. Findings discussed with Alberto Lanier MD at 18:06 hour, 07/15/2017. Imaging: Discussed imaging studies w/ scallop cutter Radiologist, I viewed and interpreted images myself Laboratory Results: Laboratory Results 07/15/17 17:30 07/15/17 17:30 07/15/17 07/15/17 17:30 17:30 WBC 10.40 10^3/uL H 10^3/uL (3.80-9.50) RBC 4.18 10^6/uL L 10^6/uL (4.40-6.38) Hgb 11.8 g/dL L g/dL (13.7-17.5) Hct 34.3 % L % (40.0-51.0) MCV 82.1 fL fL (81.5-99.8) MCH 28.2 pg pg (27.9-34.1) MCHC 34.4 g/dL g/dL (32.4-36.7) RDW 15.5 % H % (11.5-15.2) Plt Count 267 10^3/uL 10^3/uL (150-400) MPV 9.4 fL fL (8.7-11.7) Neut % (Auto) 84.4 % H % (39.3-74.2) Lymph % (Auto) 6.3 % L % (15.0-45.0) [place] % (Auto) 8.6 % % (4.5-13.0) Eos % (Auto) 0.0 % L % (0.6-7.6) Baso % (Auto) 0.2 % L % (0.3-1.7) Nucleat RBC Rel Count 0.0 % % (0.0-0.2) Absolute Neuts (auto) 8.79 10^3/uL H 10^3/uL (1.70-6.50) Absolute Lymphs (auto) 0.65 10^3/uL L 10^3/uL (1.00-3.00) Absolute Monos (auto) 0.89 10^3/uL H 10^3/uL (0.30-0.80) Absolute Eos (auto) 0.00 10^3/uL L 10^3/uL (0.03-0.40) Absolute Basos (auto) 0.02 10^3/uL 10^3/uL (0.02-0.10) Absolute Nucleated RBC 0.00 10^3/uL 10^3/uL (0-0.01) Immature Gran % 0.5 % % (0.0-1.1) Immature Gran # 0.05 10^3/uL 10^3/uL (0.00-0.10) Sodium 134 mEq/L L mEq/L (135-145) Potassium 4.2 mEq/L mEq/L (3.5-5.2) Chloride 99 mEq/L mEq/L (97-110) Carbon Dioxide 21 mEq/l L mEq/l (22-31) Anion Gap 14 mEq/L mEq/L (8-16) BUN 10 mg/dL mg/dL (7-23) Creatinine 0.7 mg/dL mg/dL (0.7-1.3) Estimated GFR > 60 Glucose 132 mg/dL H mg/dL (70-100) Calcium 8.5 mg/dL mg/dL (8.5-10.4) Medications Given: Discontinued Medications Ketorolac Tromethamine (Toradol) 30 mg IVP EDNOW ONE Stop: 07/15/17 19:25 Last Admin: 07/15/17 19:31 Dose: 30 mg General Time Seen by Provider: 07/15/17 17:09 Initial Vital Signs: Initial Vital Signs Temperature (C) 36.6 C 07/15/17 17:03 Heart Rate 102 H 07/15/17 17:03 Respiratory Rate 17 07/15/17 17:03 Blood Pressure 121/84 H 07/15/17 17:03 O2 Sat (%) 99 07/15/17 17:03 O2 Delivery Mode Room Air Allergies/Adverse Reactions: No Known Allergies Allergy (Verified 07/15/17 17:02) Home Medications: Medication Instructions Recorded oxyCODONE IR [Oxycodone Ir (RX)] 10 mg PO BID PRN 05/16/14 traMADol [Ultram 50 mg (*)] 50 mg PO Q6HRS PRN 03/02/17 Meloxicam 7.5 mg PO DAILY 07/15/17 Acetaminophen [Tylenol 325mg (*)] 325 mg PO DAILY PRN 02/01/18 Herbals/Supplements -Info Only 1 ea PO DAILY 07/16/17 Linaclotide [Linzess] 290 mcg PO DAILY PRN 07/16/17 Multivitamins [Multivitamin (*)] 1 each PO DAILY 07/16/17 Departure - Departure Disposition: 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 I personally performed the history, physical exam, and medical decision making; and confirm the accuracy of the information in the transcribed note.
[2017-07-15 17:41] LABS: PLATELET COUNT 267 10^3/uL (150-400)
[2017-07-15] MEDS ORDERED: KETOROLAC 30 MG/1 ML SDV IVP ONE (19:24)
[2017-07-15] MEDS ORDERED: GADOBUTROL 10 ML VIAL IVP ONE (20:32)
[2017-07-15] MEDS ORDERED: ACETAMINOPHEN 325 MG TAB PO PRN (23:55)
[2017-07-15] MEDS ORDERED: ONDANSETRON DISINTEGRATING 4 MG TAB PO PRN (23:55)
[2017-07-15] MEDS ORDERED: HYDROmorphONE/DILAUDID 2 MG/ML INJ IVP PRN (23:55)
[2017-07-15] MEDS ORDERED: ONDANSETRON 4 MG/2 ML VIAL IVP PRN (23:55)
[2017-07-16] MEDS ORDERED: DEXAMETHASONE 4 MG/ML VIAL ONE (00:10)
[2017-07-16] MEDS: DEXAMETHASONE 4 MG/ML VIAL IVP SCH ×3 (00:11→11:40)
[2017-07-16] MEDS ORDERED: LACTULOSE 20 GM/30 ML UDCUP PO PRN (01:03)
[2017-07-16] MEDS ORDERED: MAGNESIUM HYDROXIDE 30 ML UDCUP PO PRN (01:03)
[2017-07-16] MEDS ORDERED: BISACODYL 10 MG SUPP PR PRN (01:03)
[2017-07-16] MEDS ORDERED: POLYETHYLENE GLYCOL 3350 17 GM PKT PO PRN (01:03)
[2017-07-16 01:26] VITALS: PULSE 78; RESP 16
[2017-07-16] MEDS ORDERED: NS 1,000 ML IV ONE (01:39)
[2017-07-16] MEDS ORDERED: diphenhydrAMINE 25 MG CAP PO PRN (01:39)
[2017-07-16] MEDS: HYDROmorphONE/DILAUDID 2 MG TAB PO PRN ×3 (01:46→13:17)
--- NOTE | 2017-07-16 03:18 | PDGENHP ---
History and Physical - Chief Complaint Back, leg pain - History of Present Illness 57 yo M w/ hx of metastatic neuroendocrine tumors presents to ED with severe pain. Patient states he stopped his anti-tumor agent Afinitor about 8 days ago at the advice of his oncologist as he is preparing to enter a clinical trial. For the last 3-4 days he developed severe, progressive pain in his L lumbar area as well as radiating down his L leg. The pain is so severe he has difficulty ambulating. He denies loss of bowel or bladder control. He tried OxyContin, tramadol, and meloxicam at home with little relief. In the ED imaging was notable for diffuse sclerotic osseous metastatic lesions as well as soft tissue mass in spinal cord. Patient is being admitted for pain control and neurosurgical consultation. History Information - Allergies/Home Medication List Allergies/Adverse Reactions: No Known Allergies Allergy (Verified 07/15/17 17:02) Home Medications: oxyCODONE IR [Oxycodone Ir (RX)] 5 mg PO 05/16/14 [Last Taken Unknown] HYDROCODONE BIT/ACETAMINOPHEN 04/15/16 [Last Taken Unknown] traMADol 03/02/17 [Last Taken Unknown] Meloxicam 07/15/17 [Last Taken Unknown] I have personally reviewed and updated: family history, medical history - Past Medical History cancer - Family History Positive for: cancer - Social History Smoking Status: Never smoked Review of Systems Review of Systems: ROS: 10pt was reviewed & negative except for what was stated in HPI & below Physical Exam Physical Exam: Temp Pulse Resp BP Pulse Ox 37.1 C 78 16 128/80 H 97 07/16/17 01:24 07/16/17 01:24 07/16/17 01:24 07/16/17 01:24 07/16/17 01:24 Constitutional: appears nourished, uncomfortable Eyes: PERRL, EOMI Ears, Nose, Mouth, Throat: moist mucous membranes, no oral mucosal ulcers Cardiovascular: regular rate and rhythym, no murmur, rub, or gallop Respiratory: no respiratory distress, clear to auscultation Gastrointestinal: normoactive bowel sounds, no palpable masses Skin: warm, normal color Neurologic: AAOx3, CN II-XII Intact Psychiatric: interacting appropriately, not anxious Lab Data & Imaging Review 07/15/17 17:30 07/15/17 17:30 WBC 10.40 10^3/uL (3.80-9.50) H 07/15/17 17:30 RBC 4.18 10^6/uL (4.40-6.38) L 07/15/17 17:30 Hgb 11.8 g/dL (13.7-17.5) L 07/15/17 17:30 Hct 34.3 % (40.0-51.0) L 07/15/17 17:30 MCV 82.1 fL (81.5-99.8) 07/15/17 17:30 MCH 28.2 pg (27.9-34.1) 07/15/17 17:30 MCHC 34.4 g/dL (32.4-36.7) 07/15/17 17:30 RDW 15.5 % (11.5-15.2) H 07/15/17 17:30 Plt Count 267 10^3/uL (150-400) 07/15/17 17:30 MPV 9.4 fL (8.7-11.7) 07/15/17 17:30 Neut % (Auto) 84.4 % (39.3-74.2) H 07/15/17 17:30 Lymph % (Auto) 6.3 % (15.0-45.0) L 07/15/17 17:30 [place] % (Auto) 8.6 % (4.5-13.0) 07/15/17 17:30 Eos % (Auto) 0.0 % (0.6-7.6) L 07/15/17 17:30 Baso % (Auto) 0.2 % (0.3-1.7) L 07/15/17 17:30 Nucleat RBC Rel Count 0.0 % (0.0-0.2) 07/15/17 17:30 Absolute Neuts (auto) 8.79 10^3/uL (1.70-6.50) H 07/15/17 17:30 Absolute Lymphs (auto) 0.65 10^3/uL (1.00-3.00) L 07/15/17 17:30 Absolute Monos (auto) 0.89 10^3/uL (0.30-0.80) H 07/15/17 17:30 Absolute Eos (auto) 0.00 10^3/uL (0.03-0.40) L 07/15/17 17:30 Absolute Basos (auto) 0.02 10^3/uL (0.02-0.10) 07/15/17 17:30 Absolute Nucleated RBC 0.00 10^3/uL (0-0.01) 07/15/17 17:30 Immature Gran % 0.5 % (0.0-1.1) 07/15/17 17:30 Immature Gran # 0.05 10^3/uL (0.00-0.10) 07/15/17 17:30 Sodium 134 mEq/L (135-145) L 07/15/17 17:30 Potassium 4.2 mEq/L (3.5-5.2) 07/15/17 17:30 Chloride 99 mEq/L (97-110) 07/15/17 17:30 Carbon Dioxide 21 mEq/l (22-31) L 07/15/17 17:30 Anion Gap 14 mEq/L (8-16) 07/15/17 17:30 BUN 10 mg/dL (7-23) 07/15/17 17:30 Creatinine 0.7 mg/dL (0.7-1.3) 07/15/17 17:30 Estimated GFR > 60 07/15/17 17:30 Glucose 132 mg/dL (70-100) H 07/15/17 17:30 Calcium 8.5 mg/dL (8.5-10.4) 07/15/17 17:30 Imaging Review: Imaging Impressions Pelvis X-Ray 07/15/17 17:24 Impression: 1. Bilateral sclerotic osseous metastatic lesions are relatively stable distribution when compared to prior CT study. No pathologic fracture. Extremity Venous Study 07/15/17 17:25 Impression: 1. No evidence of deep vein thrombosis in the left lower extremity. 2. Slow flow in deep venous structures of the left lower extremity could predispose to thrombosis in the future with clinical follow-up recommended. Results called and discussed with Alberto Lanier MD on 07/15/2017 at 18:54 Femur X-Ray 07/15/17 17:25 Impression: 1. Sclerotic lesion proximal shaft left femur. No pathologic fracture seen. Lumbar Spine X-Ray 07/15/17 17:25 Impression: 1. Diffuse sclerotic osseous metastatic lesions that may progressed at L4 and L5 segment levels. If indicated, consider correlation with MRI lumbar spine without and with contrast to evaluate for possible epidural extension of tumor. Findings discussed with Alberto Lanier MD at 18:06 hour, 07/15/2017. Assessment & Plan Assessment: 57 yo M w/ known neuroendocrine carcinoma w/ osseous metastases presents with pain crisis. Plan: 1. Acute on chronic back, L leg pain - This occurred a few days after discontinuation of anti-tumor medication Afinitor. It is possible the increased pain is due to inflammation from medication withdrawal. Imaging in ED appears to show progression of osseous metastases as well as soft tissue mass in or near spinal cord at L4 level. - Dilaudid PO/IV for pain control, bowel regimen ordered - Dexamethasone 4 mg IV q6h - Neurosurgery consulted, appreciate assistance - Oncology consult in the morning 2. Neuroendocrine carcinoma - With known metastatic disease. Plans to start clinical trial soon. Diet - NPO pending surgical evaluation Code - Full Ppx - SCDs Dispo - Admit to observation status
[2017-07-16 06:06] LABS: PLATELET COUNT 287 10^3/uL (150-400)
[2017-07-16 06:12] VITALS: BP 109/71; TEMP 97.2; O2SAT 98
--- NOTE | 2017-07-16 08:26 | GCON ---
[f rep st] CONSULTATION NEUROSURGICAL CONSULTATION CHIEF COMPLAINT: Low back pain, leg pain. HISTORY OF PRESENT ILLNESS: The patient is a 57-year-old male with a 5-year history of neuroendocrin e tumors. He came off his Afinitor approximately a week ago in order to start a clinical trial in [facility]. Over the last several days, he developed progressive pain radiating to both legs with general weakness and difficulty walking. [facility]. Neurosurgical cons ultation was requested. He was started on pain medicine and steroids. This morning he feels "pretty good." The pain in his legs has significantly improved. He is not having any weakness. He does govea ve some general paresthesias in his feet. He is not having any ataxia or loss of bowel and bladder f unction. PAST MEDICAL HISTORY: Neuroendocrine tumors. MEDICATIONS: Prior to admission are oxycodone, Dilaudid, tramadol, and meloxicam. ALLERGIES: No known drug allergies. FAMILY HISTORY: Patient has no family history of neuroendocrine tumors. SOCIAL HISTORY: Patient is single with no children. He does drink alcohol socially. Denies smoking or drug use. REVIEW OF SYSTEMS: Negative. PHYSICAL EXAM: GENERAL: Patient is a pleasant 57-year-old male lying in bed, no apparent distress. HEENT: Head, eyes, ears, nose, and throat are negative for drainage. EXTREMITIES: [place], warm, and dry. NEUROLOGIC: Patient is awake, alert, oriented x4. Pupils equal, round, reactive to light. Ex traocular motions are intact. There is no evidence of facial droop. Tongue and uvula are midline. Spinal accessories are intact. His motor strength is 5/5 in his arms and legs with the exception of his right extensor hallucis longus which is chronically weak due to compartment syndrome. His sensat ion is grossly intact to light touch x4. Deep tendon reflexes are 1+/4 throughout. There is no Rafal man's and no clonus. DIAGNOSTIC STUDIES: An MRI of the lumbar spine from [facility] on 07/15/2017 demonst rates preservation of the sagittal alignment. There is widely metastatic disease throughout his lumb osacral spine. At L4-5, there is a broad-based epidural component of what appears to be tumor causin g fairly significant central canal and foraminal stenosis. IMPRESSION: This is a 57-year-old male with a history of neuroendocrine tumors. He had a flare-up o f low back pain and leg pain that is likely related to his widely metastatic disease with moderate to severe stenosis at L4-5. He is neurologically stable. PLAN: All the above issues discussed in detail with the patient. This patient was seen and examined with Dr. Hyman present. At this point in time, he is not weak in his legs with no incontine nce. Symptoms have significantly improved with oral steroids. At this point in time, we recommend t hat he stay on the oral steroids. He is at risk of developing progressive leg weakness and even inco ntinence due to the size of the tumor. It would not be unreasonable to keep him on oral steroids and have him proceed to [place] for this treatment trial. We would like him to return for a followup ap pointment in the clinic in approximately 2-3 weeks to evaluate his progress. If he develops any type of lower extremity weakness or incontinence, then we would likely recommend surgical decompression o f the L4-5 stenosis. At this point in time, Dr. Moctezuma will try to discuss this with his oncologist. Ple ase call with any neurological changes. /[id number]/MODL
[2017-07-16] MEDS ORDERED: SENNOSIDES/DOCUSATE SODIUM TAB PO SCH (09:00)
--- NOTE | 2017-07-16 10:06 | GHP ---
[f rep st] HISTORY AND PHYSICAL DATE OF ADMISSION: 07/15/2017 REFERRING PHYSICIAN: Juanjo Johnson MD OUTPATIENT ONCOLOGIST: Khurram Perez MD. REASON FOR CONSULTATION: Back pain due to neuroendocrine tumor. 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 Until recently, he was on Afinitor, b ut this was discontinued as he is going to be enrolling in a clinical trial of a radio immunotherapy in [place]. After stopping the Afinitor, he began to develop severe back and left leg pain. It was not controlled with his usual medications of oxycodone and tramadol. He came to the emergency depart ment. There was no evidence of fracture, but the lumbar spine MRI revealed tumor at the L4-L5 region causing severe canal stenosis and bilateral neuroforaminal impingement. He was seen by Neurosurgery who felt that he did not have any objective weakness and recommended a conservative approach involvi ng treated with steroids. This morning, he says he feels dramatically better, and his pain is nearly resolved. He is walking normally and is not having any pain. PAST MEDICAL HISTORY: Metastatic neuroendocrine tumor as described above. MEDICATIONS: Dexamethasone 4 mg IV q.6 hours, hydromorphone as needed, Zofran. ALLERGIES: No known drug allergies. FAMILY HISTORY: Noncontributory. SOCIAL HISTORY: He is a nonsmoker, nondrinker. Lives with his family. REVIEW OF SYSTEMS: Aside from pertinent positive noted in HPI, a 14-point review of systems was nega tive. PHYSICAL EXAMINATION: VITAL SIGNS: Temperature is 36.2, blood pressure 109/71, heart rate 78, oxyge n saturation 98% on room air. GENERAL: He was well appearing, in no acute distress. HEENT: Sclera e anicteric. Oropharynx is clear. NECK: Supple without any lymphadenopathy. LUNGS: Clear to ausc ultation bilaterally. CARDIAC: Regular rate and rhythm. No murmurs, gallops, rubs. ABDOMEN: Norm oactive bowel sounds. Nontender. EXTREMITIES: No edema, 2+ pulses. NEUROLOGIC: He is alert and o riented x3. Strength and sensation were intact. Gait was not tested. LABORATORY DATA: White count 10.3, hemoglobin 12.7, platelets of 287. Basic metabolic panel was nor mal. IMPRESSION: This is a 57-year-old man with neuroendocrine carcinoma. He has pain due to a tumor in the lumbar spinal canal, though no evidence of weakness. His pain is dramatically improved with use of dexamethasone, and Neurosurgery feels surgical intervention is not needed right now. RECOMMENDATIONS: 1. I would convert the patient to p.o. dexamethasone and can taper it over several days down to 4 mg b.i.d. 2. I will also add a low dose of gabapentin to see if that provides additional relief. 3. He will travel to [place] for participation in a clinical trial. /[id number]/MODL
--- NOTE | 2017-07-16 15:09 | HOSPPROG ---
Hospitalist Progress Note Assessment/Plan: 57 yo M w neuroendocrine rectal tumor now w L spine mass marked improvement w steroids home on dex taper to 4 bidhome today see dc summary Subjective: feels remarkably better. seen by neurosurgery Objective: Vital Signs Temp Pulse Resp BP Pulse Ox 36.2 C 78 16 109/71 98 07/16/17 06:08 07/16/17 06:08 07/16/17 06:08 07/16/17 06:08 07/16/17 06:08 Laboratory Results 07/16/17 05:53 07/16/17 05:53 07/15/17 07/16/17 07/17/17 05:59 05:59 05:59 Intake Total 1570 Output Total 1000 Balance 570 - Physical Exam Constitutional: no apparent distress, appears nourished Eyes: PERRL, anicteric sclera Ears, Nose, Mouth, Throat: moist mucous membranes, hearing normal Cardiovascular: regular rate and rhythym, no murmur, rub, or gallop Respiratory: no respiratory distress, no rales or rhonchi Gastrointestinal: normoactive bowel sounds, soft, non-tender abdomen Genitourinary: no bladder fullness, No sepulveda in urethra Skin: warm, normal color Musculoskeletal: full muscle strength ICD10 Worksheet Patient Problems: Problems Problem Status Onset Neuroendocrine carcinoma metastatic to bone Acute
[2017-07-16] MEDS ORDERED: GABAPENTIN 100 MG CAP PO SCH (16:00)
--- NOTE | 2017-07-16 16:16 | ASDISCHSUM ---
Discharge Information Plan Status: Medically Cleared to Leave: Discharge Date:07/16/2017 04:05 PM CM D/C Disposition: ADT D/C Disposition:Home, Routine, Self-Care Projected Discharge Date:07/16/2017 04:05 PM Transportation at D/C: Discharge Delay Reason: Follow-Up Date:07/16/2017 04:05 PM Discharge Slot: Final Diagnosis: Placement Information Patient Contact Information Contact Name:CLARITA Relationship:Greysonpham Address:[address] [place] [address] Work Phone: City:[facility] Phone: State/Zip Code:[place] [address] Email: Financial Information Financial Class: Primary Plan Desc:MEDICARE INPATIENT Primary Plan Number:[id number] Secondary Plan Desc:[employer] POS HMO Secondary Plan Number:[id number] Assessment Information [facility] CM Progress Note CM Note CM Note Notes: Pt to DC today with no needs. Date Signed: 07/16/2017 04:15 PM Electronically Signed By:Sabra Stout LCSW Intervention Information Intervention Type:*Incorrect Registration Date of Service:07/16/2017 02:19 PM Patient Type:Observation Staff Member:EBONI Delarosa Susan Hours: Discipline: Severity: Comment:
--- NOTE | 2017-07-17 00:19 | GDS ---
[f rep st] DISCHARGE SUMMARY DISCHARGE DIAGNOSES: 1. Known metastatic neuroendocrine carcinoma of the rectum. 2. Spinal metastases identified on lumbar spine MRI. 3. Lower extremity and back pain. HOSPITAL COURSE: Please see admission history and physical by Dr. Juanjo Johnson, as well as n eurosurgery consult and consult by Dr. Alberto Mckinley. The patient presented with back pain and leg pain. It was so bad he could not even walk. He is a relatively robust gentleman who manages his sym ptoms of cancer well as an outpatient. Lumbar spine generated a mass in and around the spine with ne uroforaminal impingement. He did not have lower extremity weakness. He was seen by Neurosurgery. Vincent yuan was started on dexamethasone with a remarkable improvement overnight. He was discharged home on de xamethasone to taper over a couple of days to 4 b.i.d. He was also provided with some pain pills. Vincent yuan is going to undergo a treatment in [place] coming up here. /[id number]/MODL
== END 2017-07-16 16:05 | disposition home or self-care (01) | DRG 543 ==
LOC: OBSVTOIN 23:55 → F1N 07-16 01:19
PROVIDERS: ADMIT Student in an Organized Health Care Education/Training Program; ATTEND Student in an Organized Health Care Education/Training Program
DX: C79.51 Secondary malignant neoplasm of bone (principal); C7A.026 Malignant carcinoid tumor of the rectum; G89.29 Other chronic pain
CPT/HCPCS: 96374; A9585; J1100; J1885

== ENCOUNTER 2017-07-16 23:02 | Inpatient (IN) | payer OTHER ==
[2017-07-16] MEDS ORDERED: HYDROmorphONE/DILAUDID 1 MG/ML INJ IVP ONE ×2 (23:08→23:56)
[2017-07-16] MEDS ORDERED: NS 1,000 ML IV ONE (23:08)
[2017-07-16] MEDS ORDERED: ONDANSETRON 4 MG/2 ML VIAL IVP ONE (23:08)
--- NOTE | 2017-07-16 23:08 | EDPHY ---
H & P Stated Complaint: tumor on spine unable to get pain relief HPI/ROS: HPI CHIEF COMPLAINT: Back pain, Neuroendocrine Tumor to back. HISTORY OF PRESENT ILLNESS: Patient 57-year-old male, he was just recently admitted to the hospital discharged today for pain control of his metastatic neuroendocrine tumor. He now presents back to the emergency room with worsening back pain. No focal weakness. Denies bowel or bladder continence. His pain is located 8/10 lumbar spine low region. Past Medical History: History of neuroendocrine tumor with metastatic disease. Past Surgical History: No recent surgery Social History: Lives locally denies drugs alcohol tobacco. Family History: Noncontributory ROS REVIEW OF SYSTEMS: A comprehensive 10 point review of systems is otherwise negative aside from elements mentioned in the history of present illness. Exam Constitutional appears well nontoxic, frail appearing, triage nursing summary reviewed, vital signs reviewed, awake/alert. Eyes normal conjunctivae and sclera, EOMI, PERRLA. HENT normal inspection, atraumatic, moist mucus membranes, no epistaxis, neck supple/ no meningismus, no raccoon eyes. Respiratory clear to auscultation bilaterally, normal breath sounds, no respiratory distress, no wheezing. Cardiovascular rate normal, regular rhythm, no murmur, no edema, distal pulses normal. Gastrointestinal soft, non-tender, no rebound, no guarding, normal bowel sounds, no distension, no pulsatile mass. Genitourinary no CVA tenderness. Musculoskeletal no midline vertebral tenderness, full range of motion, no calf swelling, no tenderness of extremities, no meningismus, good pulses, neurovascularly intact. Skin pink, warm, & dry, no rash, skin atraumatic. Neurologic awake, alert and oriented x 3, AAOx3, moves all 4 extremities equally, motor intact, sensory intact, CN II-XII intact, normal cerebellar, normal vision, normal speech. Psychiatric normal mood/affect. Heme/Lymph/Immune no lymphadenopathy. Differential Diagnosis: Includes but is not limited to in a particular order metastatic neuroendocrine tumor, pain from metastatic cancer of the spine and back Medical Decision Making: Plan for this patient IV establishment basic blood draw, IV Dilaudid for acute pain control, IV fluids. And readmission to the hospital. Re-evaluation: Source: Patient - Personal History Current Tetanus/Diphtheria Vaccine: No Current Tetanus Diphtheria and Acellular Pertussis (TDAP): No - Medical/Surgical History Hx Asthma: No Hx Chronic Respiratory Disease: No Hx Diabetes: No Hx Cardiac Disease: No Hx Renal Disease: No Hx Cirrhosis: No Hx Alcoholism: No Hx HIV/AIDS: No Hx Splenectomy or Spleen Trauma: No Other PMH: PMH: NEURO ENDOCRINE TUMORS. bilateral knee surgeries, rectal cancer - Social History Smoking Status: Never smoked Constitutional: Initial Vital Signs Temperature (C) 36.4 C 07/16/17 23:04 Heart Rate 92 07/16/17 23:04 Respiratory Rate 20 07/16/17 23:04 Blood Pressure 133/87 H 07/16/17 23:04 O2 Sat (%) 98 07/16/17 23:04 O2 Delivery Mode Simple Mask O2 (L/minute) 10 Allergies/Adverse Reactions: No Known Allergies Allergy (Verified 07/16/17 23:07) Home Medications: Medication Instructions Recorded oxyCODONE IR [Oxycodone Ir (*)] 10 mg PO BID PRN 05/16/14 traMADol [Ultram 50 mg (*)] 50 mg PO Q6HRS PRN 03/02/17 Meloxicam 7.5 mg PO DAILY 07/15/17 Acetaminophen [Tylenol 325mg (*)] 325 mg PO DAILY PRN 07/16/17 Gabapentin [Neurontin 100 MG (*)] 100 mg PO TID #90 cap 07/16/17 HYDROmorphone HCL [Dilaudid 2 mg 2 - 4 mg PO Q4HRS PRN #60 tab 07/16/17 (*)] Herbals/Supplements -Info Only 1 ea PO DAILY 07/16/17 Linaclotide [Linzess] 290 mcg PO DAILY PRN 07/16/17 Multivitamins [Multivitamin (*)] 1 each PO DAILY 07/16/17 Polyethylene Glycol 3350 [Miralax 17 gm PO DAILY PRN pkt 07/16/17 17 gm (*)] Medical Decision Making - Diagnostics Imaging Results: Imaging Impressions Fluoroscopy 07/17/17 00:00 Impression: Intraoperative fluoroscopy during lumbar spine instrumentation and decompression.. - Data Points Laboratory Results: Laboratory Results 07/17/17 17:30 07/17/17 04:30 07/17/17 07/17/17 17:30 13:10 Hgb 9.5 g/dL L g/dL (13.7-17.5) Hct 27.5 % L % (40.0-51.0) Patient ABO/Rh O POSITIVE Antibody Screen NEGATIVE Crossmatch IS Only See Detail Bld Prod Verbal Order YES Medications Given: Celecoxib (Celebrex) 200 mg PO BID [facility] Stop: 01/13/18 20:59 Last Admin: 07/17/17 21:04 Dose: 200 mg Dexamethasone (Decadron Injection) 4 mg IVP Q6HRS [facility] Stop: 01/13/18 00:44 Last Admin: 07/17/17 20:27 Dose: Not Given Famotidine (Pepcid) 20 mg PO BID [facility] Stop: 01/13/18 20:59 Last Admin: 07/17/17 21:04 Dose: 20 mg Gabapentin (Neurontin) 100 mg PO TID [facility] Stop: 01/13/18 15:59 Last Admin: 07/17/17 21:04 Dose: 100 mg Gabapentin (Neurontin) 900 mg PO Q8HRS [facility] Stop: 01/13/18 21:59 Last Admin: 07/17/17 21:04 Dose: 900 mg Hydromorphone HCl (Dilaudid) 2 mg PO Q4HRS PRN PRN Reason: Pain, Severe Able to Take PO Stop: 07/27/17 00:05 Last Admin: 07/17/17 05:49 Dose: 2 mg Cefazolin Sodium/Dextrose (Ancef 2 Gm (Premix)) 100 mls @ 200 mls/hr IV Q8HRS [facility] PRN Reason: Protocol Stop: 07/18/17 06:29 Last Admin: 07/17/17 21:04 Dose: 100 mls Potassium Chloride/Sodium Chloride (Ns W/ 20 Kcl/L) 1,000 mls @ 100 mls/hr IV CONT [facility] Stop: 07/18/17 18:44 Last Admin: 07/17/17 21:04 Dose: 1,000 mls Lactulose (Cephulac) 20 gm PO TID PRN; Protocol PRN Reason: Constipation Stop: 01/13/18 00:07 Last Admin: 07/17/17 07:24 Dose: 20 gm Morphine Sulfate (Ms Contin/Oramorph) 15 mg PO BID [facility] Stop: 07/27/17 20:59 Last Admin: 07/17/17 21:04 Dose: 15 mg Senna/Docusate Sodium (Senokot-S) 1 - 2 tab PO BID DAO PRN Reason: Protocol Stop: 01/13/18 08:59 Last Admin: 07/17/17 21:04 Dose: 2 tab Discontinued Medications Bacitracin (Bacitracin Syringe) Confirm Administered Dose 200,000 units IRR .STK -MED ONE Stop: 07/17/17 12:40 Last Admin: 07/17/17 14:40 Dose: 200,000 units Bupivacaine HCl (Sensorcaine 0.25% Sdv) Confirm Administered Dose 90 ml .ROUTE .STK-MED ONE Stop: 07/17/17 12:39 Last Admin: 07/17/17 14:41 Dose: 60 ml Chlorhexidine Gluconate (Hibiclens) Confirm Administered Dose 1 btl TP .STK-MED ONE Stop: 07/17/17 12:38 Last Admin: 07/17/17 14:42 Dose: 1 btl Epinephrine HCl (Epinephrine) Confirm Administered Dose 4 mg .ROUTE .STK-MED ONE Stop: 07/17/17 12:39 Last Admin: 07/17/17 14:42 Dose: 0.15 mg Fentanyl (Sublimaze) 50 mcg IT ONCALL ONE Stop: 07/17/17 12:22 Last Admin: 07/17/17 18:00 Dose: 50 mcg Fentanyl (Sublimaze) Confirm Administered Dose 100 mcg .ROUTE .STK-MED ONE Stop: 07/17/17 16:47 Last Admin: 07/17/17 17:14 Dose: Not Given Fentanyl (Sublimaze) Confirm Administered Dose 100 mcg .ROUTE .STK-MED ONE Stop: 07/17/17 18:02 Last Admin: 07/17/17 18:12 Dose: 50 mcg Hydromorphone HCl (Dilaudid) 1 mg IVP EDNOW ONE Stop: 07/16/17 23:09 Last Admin: 07/16/17 23:29 Dose: 1 mg Hydromorphone HCl (Dilaudid) 1 mg IVP ONCE ONE Stop: 07/16/17 23:57 Last Admin: 07/17/17 00:01 Dose: 1 mg Hydromorphone HCl (Dilaudid) 0.2 - 0.4 mg IVP Q4HRS PRN PRN Reason: Pain, Severe Unable to Take PO Stop: 07/27/17 00:05 Last Admin: 07/17/17 05:50 Dose: 0.4 mg Hydromorphone HCl (Dilaudid) 0.2 - 0.4 mg IVP Q1H PRN PRN Reason: Pain, Severe Unable to Take PO Stop: 07/27/17 00:05 Last Admin: 07/17/17 08:31 Dose: 0.4 mg Sodium Chloride (Ns) 1,000 mls @ 0 mls/hr IV EDNOW ONE; Wide Open PRN Reason: Protocol Stop: 07/16/17 23:09 Last Admin: 07/16/17 23:29 Dose: 1,000 mls Sodium Chloride (Ns) 1,000 mls @ 0 mls/hr IV ONCE ONE PRN Reason: Wide Open Stop: 07/17/17 00:04 Last Admin: 07/17/17 00:08 Dose: 1,000 mls Cefazolin Sodium (Cefazolin Syringe) 2 gm in 20 mls @ 200 mls/hr IVP ONCALL ONE PRN Reason: Protocol Stop: 07/17/17 12:26 Last Admin: 07/17/17 14:14 Dose: 20 mls Tranexamic Acid 1,000 mg/ (Sodium Chloride) 50 mls @ 300 mls/hr IV ONCALL ONE Stop: 07/17/17 12:30 Last Admin: 07/17/17 14:16 Dose: 50 mls Lactated Ringer's (Lr) 1,000 mls @ 0 mls/hr IV ONCE ONE PRN Reason: Per Protocol Stop: 07/17/17 12:51 Last Admin: 07/17/17 13:07 Dose: 1,000 mls Midazolam HCl (Versed) 2 mg IVP ONCALL ONE Stop: 07/17/17 13:29 Last Admin: 07/17/17 13:39 Dose: 2 mg Mineral Oil (Muri-Lube Mineral Oil) Confirm Administered Dose 10 ml .ROUTE .STK- MED ONE Stop: 07/17/17 13:29 Last Admin: 07/17/17 20:27 Dose: Not Given Morphine Sulfate (Morphine Pf 5 Mg/10 Ml) 0.2 mg IT ONCALL ONE Stop: 07/17/17 12:22 Last Admin: 07/17/17 18:00 Dose: 0.2 mg Morphine Sulfate (Morphine) Confirm Administered Dose 2 mg .ROUTE .STK-MED ONE Stop: 07/17/17 16:48 Last Admin: 07/17/17 17:12 Dose: Not Given Morphine Sulfate (Morphine Pf 5 Mg/10 Ml) Confirm Administered Dose 5 mg .ROUTE .STK-MED ONE Stop: 07/17/17 16:54 Last Admin: 07/17/17 17:18 Dose: Not Given Ondansetron HCl (Zofran) 4 mg IVP EDNOW ONE Stop: 07/16/17 23:09 Last Admin: 07/16/17 23:29 Dose: 4 mg Thrombin (Thrombin-Jmi) Confirm Administered Dose 10,000 unit TP .STK-MED ONE Stop: 07/17/17 12:39 Last Admin: 07/17/17 14:44 Dose: 10,000 unit Thrombin (Thrombin-Jmi) Confirm Administered Dose 20,000 unit TP .STK-MED ONE Stop: 07/17/17 13:31 Last Admin: 07/17/17 14:43 Dose: 20,000 unit Thrombin (Thrombin-Jmi) Confirm Administered Dose 20,000 unit TP .STK-MED ONE Stop: 07/17/17 14:19 Last Admin: 07/17/17 17:01 Dose: 20,000 unit Departure - Departure Disposition: [facility] Inpatient Acute Clinical Impression: Back pain Qualifiers: Back pain location: low back pain Chronicity: acute Back pain laterality: unspecified Sciatica presence: without sciatica Qualified Code(s): M54.5 - Low back pain Condition: Fair
[2017-07-16 23:39] LABS: PLATELET COUNT 365 10^3/uL (150-400)
[2017-07-16] MEDS ORDERED: HYDROmorphONE/DILAUDID 1 MG/ML INJ ONE (23:57)
[2017-07-17] MEDS ORDERED: NS 1,000 ML IV ONE (00:03)
[2017-07-17] MEDS ORDERED: ONDANSETRON DISINTEGRATING 4 MG TAB PO PRN (00:06)
[2017-07-17] MEDS ORDERED: ACETAMINOPHEN 325 MG TAB PO PRN (00:06)
[2017-07-17] MEDS ORDERED: ONDANSETRON 4 MG/2 ML VIAL IVP PRN ×2 (00:06→15:53)
[2017-07-17] MEDS ORDERED: BISACODYL 10 MG SUPP PR PRN (00:08)
[2017-07-17] MEDS ORDERED: MAGNESIUM HYDROXIDE 30 ML UDCUP PO PRN (00:08)
--- NOTE | 2017-07-17 00:40 | PDGENHP ---
History and Physical - Chief Complaint Back pain - History of Present Illness 57 yo M w/ hx of metastatic neuroendocrine tumors presents to ED with severe pain. He was admitted for the same yesterday and was discharged after getting good relief with steroids and Dilaudid. He went home and after 1 hour his pain became hard to tolerate so he came back to the ED. In the ED yesterday imaging was notable for diffuse sclerotic osseous metastatic lesions as well as soft tissue mass in spinal cord. Patient is being admitted for pain control and neurosurgical consultation. Today his states his L leg pain is better but his back pain is worse. History Information - Allergies/Home Medication List Allergies/Adverse Reactions: No Known Allergies Allergy (Verified 07/16/17 23:07) Home Medications: oxyCODONE IR [Oxycodone Ir (*)] 10 mg PO BID PRN 05/16/14 [Last Taken 07/15/17] traMADol [Ultram 50 mg (*)] 50 mg PO Q6HRS PRN 03/02/17 [Last Taken 07/15/17] Meloxicam 7.5 mg PO DAILY 07/15/17 [Last Taken 07/15/17] Acetaminophen [Tylenol 325mg (*)] 325 mg PO DAILY PRN 07/16/17 [Last Taken Unknown] Herbals/Supplements -Info Only 1 ea PO DAILY 07/16/17 [Last Taken Unknown] Linaclotide [Linzess] 290 mcg PO DAILY PRN 07/16/17 [Last Taken Unknown] Multivitamins [Multivitamin (*)] 1 each PO DAILY 07/16/17 [Last Taken Unknown] I have personally reviewed and updated: family history, medical history - Past Medical History cancer - Family History Positive for: cancer - Social History Smoking Status: Never smoked Review of Systems Review of Systems: ROS: 10pt was reviewed & negative except for what was stated in HPI & below Physical Exam Physical Exam: Temp Pulse Resp BP Pulse Ox 37.0 C 86 18 142/95 H 97 07/17/17 00:33 07/17/17 00:33 07/17/17 00:33 07/17/17 00:33 07/17/17 00:33 Constitutional: appears nourished, uncomfortable Eyes: PERRL, EOMI Ears, Nose, Mouth, Throat: moist mucous membranes, no oral mucosal ulcers Cardiovascular: regular rate and rhythym, no murmur, rub, or gallop Respiratory: no respiratory distress, no rales or rhonchi Gastrointestinal: normoactive bowel sounds, soft, non-tender abdomen Skin: warm, normal color Musculoskeletal: full muscle strength, no muscle tenderness Neurologic: AAOx3, sensation intact bilaterally, CN II-XII Intact Psychiatric: interacting appropriately, not anxious Lab Data & Imaging Review 07/16/17 23:25 07/16/17 23:25 WBC 15.52 10^3/uL (3.80-9.50) H 07/16/17 23:25 RBC 4.61 10^6/uL (4.40-6.38) 07/16/17 23:25 Hgb 12.5 g/dL (13.7-17.5) L 07/16/17 23:25 Hct 37.3 % (40.0-51.0) L 07/16/17 23:25 MCV 80.9 fL (81.5-99.8) L 07/16/17 23:25 MCH 27.1 pg (27.9-34.1) L 07/16/17 23:25 MCHC 33.5 g/dL (32.4-36.7) 07/16/17 23:25 RDW 15.3 % (11.5-15.2) H 07/16/17 23:25 Plt Count 365 10^3/uL (150-400) D 07/16/17 23:25 MPV 9.8 fL (8.7-11.7) 07/16/17 23: Neut % (Auto) 87.9 % (39.3-74.2) H 07/16/17 23:25 Lymph % (Auto) 4.9 % (15.0-45.0) L 07/16/17 23:25 [place] % (Auto) 6.3 % (4.5-13.0) 07/16/17 23:25 Eos % (Auto) 0.1 % (0.6-7.6) L 07/16/17 23:25 Baso % (Auto) 0.1 % (0.3-1.7) L 07/16/17 23:25 Nucleat RBC Rel Count 0.0 % (0.0-0.2) 07/16/17 23:25 Absolute Neuts (auto) 13.64 10^3/uL (1.70-6.50) H 07/16/17 23:25 Absolute Lymphs (auto) 0.76 10^3/uL (1.00-3.00) L 07/16/17 23:25 Absolute Monos (auto) 0.98 10^3/uL (0.30-0.80) H 07/16/17 23:25 Absolute Eos (auto) 0.01 10^3/uL (0.03-0.40) L 07/16/17 23:25 Absolute Basos (auto) 0.02 10^3/uL (0.02-0.10) 07/16/17 23:25 Absolute Nucleated RBC 0.00 10^3/uL (0-0.01) 07/16/17 23:25 Immature Gran % 0.7 % (0.0-1.1) 07/16/17 23:25 Immature Gran # 0.11 10^3/uL (0.00-0.10) H 07/16/17 23:25 Sodium 135 mEq/L (135-145) 07/16/17 23:25 Potassium 4.4 mEq/L (3.5-5.2) 07/16/17 23:25 Chloride 98 mEq/L (97-110) 07/16/17 23:25 Carbon Dioxide 20 mEq/l (22-31) L 07/16/17 23:25 Anion Gap 17 mEq/L (8-16) H 07/16/17 23:25 BUN 18 mg/dL (7-23) 07/16/17 23:25 Creatinine 0.8 mg/dL (0.7-1.3) 07/16/17 23:25 Estimated GFR > 60 07/16/17 23:25 Glucose 132 mg/dL (70-100) H 07/16/17 23:25 Calcium 9.0 mg/dL (8.5-10.4) 07/16/17 23:25 Assessment & Plan Assessment: Back pain (Acute) Plan: 1. Acute on chronic back, L leg pain - This occurred a few days after discontinuation of anti-tumor medication Afinitor. It is possible the increased pain is due to inflammation from medication withdrawal. Imaging in ED appears to show progression of osseous metastases as well as soft tissue mass in or near spinal cord at L4 level. He has returned only a few hours after discharge with recurrent symptoms. - Dilaudid PO/IV for pain control, bowel regimen ordered - Dexamethasone 4 mg IV q6h - May need surgical intervention or palliative radiation if cannot control with medications 2. Neuroendocrine carcinoma - With known metastatic disease. Plans to start clinical trial soon. Diet - NPO pending repeat surgical evaluation Code - Full Ppx - SCDs Dispo - Admit to observation status
[2017-07-17] MEDS: HYDROmorphONE/DILAUDID 2 MG TAB PO PRN ×2 (01:07→05:49)
[2017-07-17] MEDS: HYDROmorphONE/DILAUDID 1 MG/ML INJ IVP PRN ×4 (01:08→08:31)
[2017-07-17] MEDS: DEXAMETHASONE 4 MG/ML VIAL IVP SCH ×5 (01:08→23:47)
[2017-07-17 05:10] LABS: PLATELET COUNT 308 10^3/uL (150-400)
[2017-07-17] MEDS: LACTULOSE 20 GM/30 ML UDCUP PO PRN (07:24)
[2017-07-17] MEDS ORDERED: morphINE PCA 30 MG/30 ML PCA IV PRN (08:58)
[2017-07-17] MEDS ORDERED: NALOXONE HCL 0.4 MG/ML INJ IVP PRN ×2 (08:58→15:53)
--- NOTE | 2017-07-17 09:20 | GCON ---
[f rep st] CONSULTATION DATE OF CONSULTATION: 07/17/2017 OUTPATIENT ONCOLOGIST: Khurram Perez MD. REASON FOR CONSULTATION: Neuroendocrine carcinoma with epidural spinal lesion. 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 He was admitted yesterday for severe left back and leg pain. MRI showed some a tumor causing central canal and bilateral lateral foraminal stenosis. His pain was controlled with IV pain medications and dexamethasone. He did not have any neurological weakness at that time and was seen by Neurosurgery and declined surgical intervention. He was discharged to home but within several hours was having excruciating pain after minimal activity. This was despite use of oral Dilaudid, dexamethasone and gabapentin. I spoke to him later tonight and suggested that we readmit him for pain control. He has also been having some perineal numbness as well as urinary retention and obstipation. Overnight he was given IV Dilaudid with good pain relief, although he says it is still exacerbated by movement. PAST MEDICAL HISTORY: Otherwise unremarkable. CURRENT MEDICATIONS: Include dexamethasone 4 mg IV q.6 hours and Dilaudid IV. ALLERGIES: No known drug allergies. FAMILY HISTORY: Noncontributory. SOCIAL HISTORY: Nonsmoker, nondrinker. Lives with his . REVIEW OF SYSTEMS: Other than pertinent positives in HPI a 14-point review of systems was negative. PHYSICAL EXAMINATION: VITAL SIGNS: Temperature is 36.4, blood pressure 123/85 , heart rate 80, oxygen saturation 99% on room air. GENERAL: He was in no acute distress. HEENT: Sclerae anicteric. Oropharynx is clear. NECK: Supple without lymphadenopathy. LUNGS: Clear to auscultation bilaterally. CARDIAC EXAMINATION: Regular rate and rhythm. No murmurs, gallops, rubs. ABDOMEN: Normoactive bowel sounds. Nontender. EXTREMITIES: Without edema. NEUROLOGIC: Alert and oriented x3. He had some numbness in the perineal region. Leg strength is intact. Gait was not tested. LABORATORY DATA: White count 12,000, hemoglobin 11.3, platelets 308. Basic metabolic panel was normal. IMPRESSION: This is a 57-year-old male with a spinal cord tumor resulting in severe pain refractory to outpatient management as well as some evidence of neurological compromise of his bowel and bladder. I have discussed the case extensively with his primary oncologist and with Dr. Hyman of Neurosurgery. We feel that surgical intervention offers the patient the best chance of preventing neurological injury and also alleviating his pain. Radiation could also be considered though this has some drawbacks including the fact it will not immediately relieve his symptoms, it may not rapidly reverse any neurological compromise, and may cause some decrease in bone marrow function that could have some implications for later therapies. Clearly, outpatient management of his pain has failed and something additional needs to be done. The patient is in agreement and he will meet with Dr. Hyman later this morning. I will speak with Dr. Kevin Fuchs, another one of his oncologists who has been trying to get him enrolled in this clinical trial in [place] as that may need to be delayed. We will follow patient with you closely while he is in the hospital. /[id number]/MODL MTDD
[2017-07-17] MEDS: SENNOSIDES/DOCUSATE SODIUM TAB PO SCH ×2 (10:42→21:04)
[2017-07-17] MEDS ORDERED: POLYETHYLENE GLYCOL 3350 17 GM PKT PO PRN (10:44)
[2017-07-17] MEDS ORDERED: oxyCODONE IR 5 MG TAB PO PRN ×2 (10:44→18:37)
[2017-07-17] MEDS ORDERED: TRANEXAMIC ACID 1,000 MG in NS (SYRINGE) 50 ML IV ONE (12:21)
[2017-07-17] MEDS ORDERED: ceFAZolin 2 GM/SWFI 2 GM/20 ML SYR IVP ONE (12:21)
[2017-07-17] MEDS ORDERED: morphINE PF 5 MG/10 ML INJ IT ONE (12:21)
[2017-07-17] MEDS ORDERED: fentaNYL 100 MCG/2 ML INJ IT ONE (12:21)
--- NOTE | 2017-07-17 12:27 | PDGENHP ---
History & Physical Chief Complaint: Low back/left leg pain History of Present Illness: 57 male with with history of neuroendocrine tumor with metastases to the bone as well as soft tissue mass at L4/5 causing severe, critical spinal stenosis. Patient has developed worsened low back and left leg pain as well as acute urinary retention over the past 12-24 hours. Pertinent Past, Social, Family History: . lives with . does not smoke or drink alchohol Relevant Physical Exam: subjective paresthesias in perineal region
[2017-07-17] MEDS ORDERED: CHLORHEXIDINE GLUC HIBICLENS 118 ML BTL TP ONE (12:37)
[2017-07-17] MEDS ORDERED: THROMBIN (BOVINE) 5,000 UNIT VIAL TP ONE (12:38)
[2017-07-17] MEDS ORDERED: BUPIVACAINE 0.25% 30 ML SDV ONE (12:38)
[2017-07-17] MEDS ORDERED: BACITRACIN 50,000 UNITS/10 ML SYR IRR ONE (12:39)
[2017-07-17] MEDS ORDERED: LR 1,000 ML IV ONE (12:50)
--- NOTE | 2017-07-17 12:50 | GCON ---
[f rep st] CONSULTATION NEUROSURGICAL CONSULTATION DATE OF CONSULTATION: 07/17/2017 REASON FOR CONSULTATION: Low back pain, left leg pain, and history of neuroendocrine carcinoma with epidural spine lesion. The patient is a pleasant 57-year-old gentleman with a history of neuroendocrine carcinoma originatin g in the rectum and metastatic to the bone. He was admitted. He was seen yesterday in neurosurgical consultation by Dr. Hyman for complaints of severe low back pain and left leg pain. Imaging studies of the lumbar spine demonstrated tumor causing central canal and bilateral foraminal stenosi s. The patient's pain was initially controlled during his first hospitalization and he was slated to discharge to an outpatient setting in order to undergo radiation treatment in [place] next week. Sh ortly after discharge yesterday, the patient returned to the hospital with excruciating left lower ex tremity pain, urinary retention, and paresthesias in the perineal region. Currently, the patient's p ain is well controlled after receiving some IV Dilaudid. He denies any focal motor weakness of his l ower extremities. He has not had a bowel movement in 3 days and states he does feel constipated, but is unable to urinate, and required straight catheterization with approximately 850 mL of urine outpu t. PAST MEDICAL HISTORY: Otherwise unremarkable. CURRENT MEDICATIONS: Decadron. ALLERGIES: No known drug allergies. FAMILY HISTORY: Noncontributory. SOCIAL HISTORY: The patient does not smoke. He does not drink. He lives with his in [place]. REVIEW OF SYSTEMS: Negative other than what is mentioned in the HPI. PHYSICAL EXAMINATION: GENERAL: Patient is awake, alert, and oriented x4. HEAD, EARS, NOSE, THROAT: Within normal limits. EXTREMITIES: Within normal limits. ABDOMEN: Soft, nontender, nondistended . EXTREMITIES: [place], warm and dry. NEUROLOGIC: Patient is awake, alert, and oriented x4. Cranial nerves 2-12 are intact to gross examination. Speech is fluent. Tongue is midline. Spinal accessor y muscles are intact. He has equal and symmetric strength of the bilateral upper and lower extremiti es in all muscle groups with normal sensation in all dermatome distributions of the bilateral upper a nd lower extremities. He has subjective decreased sensation in the perianal region. DATA REVIEWED: Lumbar MRI from July 15 with and without contrast demonstrates soft tissue mass within the canal at the L4-5 level resulting in severe canal stenosis with soft tissue extending late rally into the neural foramina bilaterally. Also noted are innumerable metastatic lesions seen invol ving the osseous structures, as well as soft tissue lesions. LAB RESULTS: White blood cell count 12, hemoglobin is 11.3, hematocrit is 33.5, platelets are 308,00 0. Sodium is 136, potassium is 5.0, chloride 104, BUN 16, creatinine 0.7. IMPRESSIONS: This is a 57-year-old male with a history of neuroendocrine carcinoma with an epidural spinal lesion and severe stenosis at L4-5. The patient initially had good pain control, however, thi s has returned in the low back and left leg and is now associated with urinary retention and paresthe kiesha of the perineum. At this time, Dr. Hyman has met with the patient and recommends surgical intervention due to his new urinary retention and paresthesias as well as recurrent, poorly controlled pain. The patient understands the risks and benefits of surgical procedure and is willing to proceed with surgery. patient was seen and examined with Dr. Hyman today. /[id number]/MODL
[2017-07-17] MEDS ORDERED: MINERAL OIL 10 ML VIAL ONE (13:28)
[2017-07-17] MEDS ORDERED: MIDAZOLAM 2 MG/2 ML VIAL IVP ONE (13:28)
--- NOTE | 2017-07-17 13:29 | PDANEPAE ---
ANE History of Present Illness here for L5 tumor resection. Neuroedoncrine rectal primary tumor. Denies carcinoid symptoms. ANE Past Medical History - Cardiovascular History Hx Hypertension: No Hx Arrhythmias: No Hx Chest Pain: No Hx Coronary Artery / Peripheral Vascular Disease: No Hx CHF / Valvular Disease: No Hx Palpitations: No - Pulmonary History Hx COPD: No Hx Asthma/Reactive Airway Disease: No Hx Recent Upper Respiratory Infection: No Hx Oxygen in Use at Home: No Hx Sleep Apnea: No Sleep Apnea Screening Result - Last Documented: Positive - Endocrine History Hx Diabetes: No Hypothyroid: No Hyperthyroid: No Obesity: no - Renal History Hx Renal Disorders: No - Liver History Hx Hepatic Disorders: No Hepatic History Comment: 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 - Chronic Pain History Chronic Pain: Yes ANE Review of Systems Review of systems is: negative Review of Systems: - Exercise capacity Exercise capacity: <4 METS ANE Patient History - Allergies Allergies/Adverse Reactions: No Known Allergies Allergy (Verified 07/16/17 23:07) - Home Medications Home medications: home medication list seen and reviewed Home Medications: oxyCODONE IR [Oxycodone Ir (*)] 10 mg PO BID PRN 05/16/14 [Last Taken 07/15/17] traMADol [Ultram 50 mg (*)] 50 mg PO Q6HRS PRN 03/02/17 [Last Taken 07/15/17] Meloxicam 7.5 mg PO DAILY 07/15/17 [Last Taken 07/15/17] Acetaminophen [Tylenol 325mg (*)] 325 mg PO DAILY PRN 07/16/17 [Last Taken Unknown] Herbals/Supplements -Info Only 1 ea PO DAILY 07/16/17 [Last Taken Unknown] Linaclotide [Linzess] 290 mcg PO DAILY PRN 07/16/17 [Last Taken Unknown] Multivitamins [Multivitamin (*)] 1 each PO DAILY 07/16/17 [Last Taken Unknown] - NPO status NPO Status: no food or drink >8 hours NPO Since - Liquids (Date): 07/16/17 NPO Since - Liquids (Time): 11:59 NPO Since - Solids (Date): 07/16/17 NPO Since - Solids (Time): 17:00 - Smoking Hx Smoking Status: Never smoked ANE Labs/Vital Signs - Labs Result Diagrams: 07/17/17 04:30 07/17/17 04:30 - Vital Signs Vital Signs: reviewed preoperatively; see RN documention for details Blood Pressure: 126/85 Heart Rate: 83 Respiratory Rate: 16 O2 Sat (%): 96 Height: 182.88 cm Weight: 79.3 kg ANE Physical Exam - Airway Neck exam: FROM Mallampati Score: Class 1 - Pulmonary Pulmonary: no respiratory distress - Cardiovascular Cardiovascular: regular rate and rhythym - ASA Status ASA Status: III ANE Anesthesia Plan Anesthesia Plan: general endotracheal anesthesia Lines/Monitors: arterial line, additional IV
[2017-07-17] MEDS ORDERED: THROMBIN (BOVINE) 20,000 UNIT VIAL TP ONE ×2 (13:30→14:18)
[2017-07-17] MEDS ORDERED: PROPOFOL/EMULSION 500 MG/50 ML BOTTLE IV ONE ×3 (13:33→16:22)
[2017-07-17] MEDS ORDERED: MIDAZOLAM 2 MG/2 ML VIAL ONE (13:37)
[2017-07-17] MEDS ORDERED: fentaNYL 250 MCG/5 ML INJ ONE (13:43)
--- NOTE | 2017-07-17 15:45 | ASMTCMCOM ---
CM Note CM Note Notes: Pt with neuroendocrine tumor with mets to the bone readmitted after being DC'd yesterday due to severe pain. Pt will have surgery today with Dr Moctezuma. Pt's DC needs are TBD. CM will continue to follow. Date Signed: 07/17/2017 03:44 PM Electronically Signed By:Sabra Stout LCSW
[2017-07-17] MEDS ORDERED: fentaNYL 100 MCG/2 ML INJ IVP PRN (15:53)
[2017-07-17] MEDS ORDERED: HYDROmorphONE/DILAUDID 1 MG/ML INJ IVP PRN ×2 (15:53→18:37)
[2017-07-17] MEDS ORDERED: epHEDrine SULFATE 10 MG/ML SYR IVP PRN (15:53)
[2017-07-17] MEDS ORDERED: PHENYLEPHRINE HCL 100 MCG/ML SYR IVP PRN (15:53)
[2017-07-17] MEDS ORDERED: NS 500 ML IV PRN (15:53)
[2017-07-17] MEDS ORDERED: ALBUTEROL 3 ML DEYVIAL IH PRN (15:53)
[2017-07-17] MEDS ORDERED: PROMETHAZINE HCL 25 MG/ML INJ IVP PRN (15:53)
[2017-07-17] MEDS ORDERED: HYDROmorphONE/DILAUDID 2 MG/ML INJ ONE (16:00)
[2017-07-17] MEDS ORDERED: fentaNYL 100 MCG/2 ML INJ ONE ×3 (16:46→18:10)
[2017-07-17] MEDS ORDERED: morphINE PF 5 MG/10 ML INJ ONE ×2 (16:53→18:03)
--- NOTE | 2017-07-17 17:02 | HOSPPROG ---
Hospitalist Progress Note Assessment/Plan: patient unavailable to be seen as in OR. hospital medicine available for questions and will see in AM Objective: Vital Signs Temp Pulse Resp BP Pulse Ox 37 C 83 16 126/85 H 96 07/17/17 12:57 07/17/17 15:53 07/17/17 15:53 07/17/17 15:53 07/17/17 15:53 Laboratory Results 07/17/17 04:30 07/17/17 04:30 07/16/17 07/17/17 07/18/17 05:59 05:59 05:59 Intake Total 1999 300 Output Total 850 850 Balance 1150 -550 ICD10 Worksheet Patient Problems: Problems Problem Status Onset Back pain Acute Neuroendocrine carcinoma metastatic to bone Acute
--- NOTE | 2017-07-17 18:36 | POSTOPPROG ---
Post Op Note Date of Operation: 07/17/17 Surgeon: Willi Hyman User Support Analyst Supervisor: Kevin Gil PA-C Anesthesiologist: Cholo Givens MD Anesthesia: GET(General Endotracheal) Pre-op Diagnosis: L4 posterior mass with critical stenosis Post-op Diagnosis: same Indication: Urinary retention, severe pain Procedure: L4/5 laminectomy with decompression of mass. L3/4 ,4/5 TLIF, L3-5 fusion Findings: severe stenosis L4/5. spinal mass posterior to L4 Inf/Abcess present in the surg proc area at time of surgery?: No EBL: 100-500 Total fluids administered: 3 liters Complications: None Drains: Jhonatan Drummond (R[place] to bulb suction) Specimen(s): L4 mass
[2017-07-17] MEDS ORDERED: diphenhydrAMINE 25 MG CAP PO PRN (18:37)
[2017-07-17] MEDS ORDERED: METHOCARBAMOL 750 MG TAB PO PRN (18:37)
--- NOTE | 2017-07-17 18:44 | POSTANESTH ---
Post Anesthetic Evaluation Cardiovascular Status: Normal, Stable Respiratory Status: Normal, Stable Level of Consciousness/Mental Status: Can Participate in Eval Pain Control: Adequate, Prn Tx Ordered Nausea/Vomiting Control: Adequate, Prn Tx Ordered Complications Possibly Related to Anesthesia: None Noted
[2017-07-17] MEDS ORDERED: NS W/ 20 KCl/L 1,000 ML IV SCH (18:45)
--- NOTE | 2017-07-17 18:46 | SOAPPROG ---
SOAP Progress Note Assessment/Plan: Assessment: Doing well s/p L3-L5 fusion with L3/4,4/5 TLIF and resection/biopsy of L4 posterior mass Plan: CPM in PACU RENO to bulb suction HOB as tolerated transfer to Med/surg floor per protocol 07/17/17 18:45 Subjective: awake, speaking, comfortable. Objective: Vital Signs Temp Pulse Resp BP Pulse Ox 37 C 83 16 126/85 H 96 07/17/17 12:57 07/17/17 15:53 07/17/17 15:53 07/17/17 15:53 07/17/17 15:53 Laboratory Results 07/17/17 17:30 07/17/17 04:30 07/16/17 07/17/17 07/18/17 05:59 05:59 05:59 Intake Total 2000 300 Output Total 850 850 Balance 1150 -550 BP: 125/78 HR: 101 O2: 100% face mask Neuro: PANCHAL to command sens +LT follows commands x 4. ICD10 Worksheet Patient Problems: Problems Problem Status Onset Back pain Acute Neuroendocrine carcinoma metastatic to bone Acute
[2017-07-17] MEDS: GABAPENTIN 100 MG CAP PO SCH ×2 (20:27→21:04)
[2017-07-17] MEDS: ceFAZolin 2 GM/DEXTROSE 100 ML IV SCH (21:04)
[2017-07-17] MEDS: FAMOTIDINE 20 MG TAB PO SCH (21:04)
[2017-07-17] MEDS: GABAPENTIN 300 MG CAP PO SCH (21:04)
[2017-07-17] MEDS: morphINE SR 15 MG TAB PO SCH (21:04)
[2017-07-18 05:14] LABS: PLATELET COUNT 270 10^3/uL (150-400)
--- NOTE | 2017-07-18 05:22 | GOP ---
[f rep st] OPERATIVE REPORT DATE OF OPERATION: SURGEON: Willi Hyman MD NEUROSURGEON: Willi Hyman MD. GARAGE LABORER: CHARO Puckett. ANESTHESIA: General endotracheal. PREOPERATIVE DIAGNOSIS: Metastatic L4 vertebral body/epidural tumor with severe canal compromise and progressive neurologic deficit. Intractable pain. POSTOPERATIVE DIAGNOSIS: Metastatic L4 vertebral body/epidural tumor with severe canal compromise an d progressive neurologic deficit. Intractable pain. PROCEDURE PERFORMED: 1. L4-5 laminectomy and bilateral facetectomy for decompression of spinal canal. 2. Resection of L4 tumor with partial vertebral corpectomy. 3. L3 through L5 posterior segmental (pedicle screw) fixation and posterolateral fusion with local a utograft. 4. L3-4 and L4-5 posterior/transforaminal lumbar interbody fusion with two structural PEEK interbody spacers and local autograft, at each level. 5. Use of intraoperative microscopy, fluoroscopy and computer volumetric stereotactic navigation wit h intraoperative neurophysiologic testing. 6. Injection of intrathecal narcotic analgesics and subcutaneous and intramuscular local anesthesia for postoperative pain control. FINDINGS: ESTIMATED BLOOD LOSS: 300 cc. INDICATIONS: The patient is a 57-year-old man with metastatic endocrine tumors, one of which is in t he L4 vertebral body with an epidural component causing severe canal compromise and progressive neuro logic deficit with intractable pain and loss of bowel and bladder control, with critical spinal steno sis. He presents now for surgical decompression and stabilization. DESCRIPTION OF PROCEDURE: After informed consent was obtained, the patient was taken to the operatin g room and placed in the prone position on the Jhonatan table. The lumbosacral area was prepped and d raped in sterile fashion. After fluoroscopic localization of the correct level, the subcutaneous and intramuscular tissues were infiltrated with local anesthesia. A midline linear incision was then cr eated from approximately L3 through L5. This was carried down to the fascial layer, which was incise d using monopolar electrocautery and carried in the subfascial plane along the spinous processes and lamina bilaterally. Intraoperative fluoroscopy was again utilized to verify the correct levels. Fol lowing this, the dissection was carried out over the facet joints and transverse processes. The L4 a nd L5 laminectomies were performed with complete facetectomies bilaterally. The tumor was identified medially and anterior to the thecal sac. The L4 pedicle was therefore removed and a transpedicular approach to the vertebral body was performed so as to not retract the dura too much. An extensive de compression of the thecal sac with removal of quite a bit of the L4 vertebral body and the tumor was then performed with thorough decompression. Following this, the [employer] navigational system was brou farhaddebi in and, using computer volumetric stereotactic navigation, pedicle screws were placed at L3, L4, and L5 bilaterally. Note that the L4 pedicles were mostly drilled away but there was still some bone in the vertebral body and I was able to get at least a little bit of screw purchase. I placed very long screws at all 3 levels bilaterally so as to maximize the screw purchase. Intraoperative neuroph ysiologic testing was performed with monopolar electrostimulation and interpretation of the potential s by the surgeon on the screws. Following this, rods were placed across the 3 levels. First the top [address] screws were locked [address] and the bottom level distracted, during which time a complete diskecto my was performed at the L4-5 level with preparation of the endplates and placement of 2 structural PE EK interbody spacers and local autograft for an L4-5 posterior/transforaminal lumbar interbody fusion . Then the screws were loosened and the piotr readjusted and the bottom 2 locking caps were secured an d the top level was distracted and an L3-4 diskectomy was then performed with preparation of endplate s and placement of 2 structural PEEK interbody spacers and local autograft for an L3-4 posterior/james sforaminal lumbar interbody fusion. The screw and piotr system was then released and placed under comp ression across the 2 interspaces, being careful not to pull out the L4 screws since there was not a l ot of bone holding them. Following this, the transverse processes on the right side were then decort icated and residual local autograft from the laminectomies were placed laterally for posterolateral f usion from L3 through L5. Note that any bone that was abnormal looking was removed and not replaced. Only bone that appeared to be normal was put back in the interspace for fusion. I felt that this w as in the patient's best interest to not use bone morphogenic protein or pelvic autograft, which woul d cause significant bleeding and increase risk of infection, and other problems including more chroni c pelvic pain. Following locking the screws, under slight amount of compression a drain was placed. 200 mcg of Duramorph, 150 mcg of fentanyl were injected intrathecally for postoperative pain control . The subcutaneous and intramuscular tissues were re-infiltrated with local anesthesia. The wound w as closed in a layered fashion using interrupted Vicryl sutures followed by Steri-Strips on the skin. COMPLICATIONS: None. DISPOSITION: The patient is currently in the process of being repositioned for extubation. /[id number]/MODL
[2017-07-18] MEDS: GABAPENTIN 300 MG CAP PO SCH ×3 (06:26→21:15)
[2017-07-18] MEDS: ceFAZolin 2 GM/DEXTROSE 100 ML IV SCH (06:26)
[2017-07-18] MEDS: DEXAMETHASONE 4 MG/ML VIAL IVP SCH ×3 (06:26→17:26)
[2017-07-18] MEDS ORDERED: Herbals/Supplements -Info Only PO SCH (09:00)
[2017-07-18] MEDS: MULTIVITAMINS 1 EACH TAB PO SCH (09:10)
[2017-07-18] MEDS: POLYETHYLENE GLYCOL 3350 17 GM PKT PO PRN (09:10)
[2017-07-18] MEDS: morphINE SR 15 MG TAB PO SCH ×2 (09:10→21:17)
[2017-07-18] MEDS: GABAPENTIN 100 MG CAP PO SCH ×3 (09:10→21:15)
[2017-07-18] MEDS: FAMOTIDINE 20 MG TAB PO SCH ×2 (09:10→21:17)
[2017-07-18] MEDS: SENNOSIDES/DOCUSATE SODIUM TAB PO SCH ×2 (09:10→21:17)
--- NOTE | 2017-07-18 09:24 | NEUSURGPN ---
Date of Surgery: 07/17/17 Post Op Day: 1 Assessment/Plan: Assessment: 57 yo male that is s/p L3-L5 fusion with L3/4, 4/5 TLIF and resection/biopsy of L4 posterior mass POD #1 Plan: -doing well -s/p resection of mass and fusion: pt with expected lower back pain -PT/OT pending -brace when out of bed -call with any questions or concerns -take medications as directed -RENO to bulb suction -HOB as tolerated -pt understands and agrees -plan for dc tomorrow Subjective: Awake and alert. NAD. Eating/drinking and voiding well. No govea/neck/chest/abd or gu complaints. No f/c/n/v/d. Objective: AAO x 3, PERRLA/EOMI no droop CN 2-12 grossly intact +lt touch 5/5 BUE/BLE = CDI RENO in place Neuro Check Frequency: per routine Urinary Catheter in Place: No Catheter Insertion Date: 07/17/17 - Physician Discussed Patient with : [facility] Physical Exam - Vitals, I&O, Labs I and O 07/17/17 07/18/17 07/19/17 05:59 05:59 05:59 Intake Total 3600 1582 Output Total 690 520 Balance 2910 1062 Intake: Oral (ml) 500 IV Intake (ml) 3600 IV Infused (ml) 1082 NS W/ 20 KCl/L 1,000 ml @ 882 100 mls/hr IV CONT DAO Rx#:[id number] ceFAZolin 2 GM/DEXTROSE 200 100 ml @ 200 mls/hr IV Q8HRS DAO Rx#:[id number] Output: Urine (ml) 300 350 Catheter 300 350 Estimated Blood Loss (ml) 300 RENO Drain Output (ml) 90 170 Back Jhonatan Drummond 90 170 Vital Signs Temp Pulse Resp BP Pulse Ox 36.8 C 76 16 113/71 96 07/18/17 07:30 07/18/17 07:30 07/18/17 07:30 07/18/17 07:30 07/18/17 07:30 Laboratory Results 07/18/17 04:27 07/18/17 04:27 ICD10 Worksheet Patient Problems: Problems Problem Status Onset Back pain Acute Neuroendocrine carcinoma metastatic to bone Acute
--- NOTE | 2017-07-18 11:29 | SOAPPROG ---
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 * s/p L3-L5 fusion with resection of L4 mass 07/17/17. * Constipation: bowel regimen. Likely home tomorrow. f/u with Dr. Perez at [facility]. 07/18/17 11:27 Subjective: Significantly improved. Minimal postop pain. Concerned about constipation. O: VS reviewed. Gen: up in chair, NAD, A&O. Appears very comfortable. Lungs: breathing comfortably. Objective: Vital Signs Temp Pulse Resp BP Pulse Ox 36.8 C 76 16 113/71 96 07/18/17 07:30 07/18/17 07:30 07/18/17 07:30 07/18/17 07:30 07/18/17 07:30 Laboratory Results 07/18/17 04:27 07/18/17 04:27 07/17/17 07/18/17 07/19/17 05:59 05:59 05:59 Intake Total 3600 1582 Output Total 078 820 Balance 8710 422 ICD10 Worksheet Patient Problems: Problems Problem Status Onset Back pain Acute Neuroendocrine carcinoma metastatic to bone Acute
[2017-07-18] MEDS: LACTULOSE 20 GM/30 ML UDCUP PO PRN (11:47)
[2017-07-18] MEDS ORDERED: MAGNESIUM CITRATE 300 ML BOTTLE PO ONE (15:07)
--- NOTE | 2017-07-18 15:15 | HOSPPROG ---
Hospitalist Progress Note Assessment/Plan: Assessment: 57 yo M p/w intractable back pain in setting of neuroendocrine tumor, osseous metastases, and L4 cord compression requiring surgery Plan: 1. Intractable back pain. 2/2 osseous mets and cord compression w/ bowel and bladder symptoms, requiring urgent surgery - POD#1 L3-5 fusion, L 3-5 TLIF, L4 mass resection by Dr. Moctezuma - pain mgmt is optimal w/ ms contin 15 bid, PRN dilaudid - defer to NSGY whether to adjust steroids and continue as outpt - ongoing RENO drain - appreciate oncology consultation for ongoing care, sees Dr. Perez as outpt - counseled patient that he should attempt to discontinue ms contin as outpt after he is no longer requiring regular breakthrough pain Rx, should consult w/ NSGY at his follow-up appointments regarding this issue 2. Neuroendocrine carcinoma. With known metastatic disease. Plans to start clinical trial soon. 3. Constipation. Acute on chronic s/p surgery w/ increase in pain Rx - add mag citrate now, continue other home Rx Diet - Regular Code - Full Ppx - SCDs Dispo - ADD 2/, pending BM and pain mgmt Subjective: no BM, minimal pain Objective: Vital Signs Temp Pulse Resp BP Pulse Ox 36.8 C 82 12 108/70 96 07/18/17 11:39 07/18/17 11:39 07/18/17 11:39 07/18/17 11:39 07/18/17 11:39 Laboratory Results 07/18/17 04:27 07/18/17 04:27 07/17/17 07/18/17 07/19/17 05:59 05:59 05:59 Intake Total 3600 1582 Output Total 690 855 Balance 2910 727 - Pending Discharge Pending Discharge Within 24 Hours: Yes Pending Discharge Date: 07/19/17 Pending Discharge Time: 11:00 - Physical Exam Constitutional: no apparent distress, appears nourished, not in pain, No uncomfortable Cardiovascular: regular rate and rhythym, no murmur, rub, or gallop, edema ( trace bilat LE) Respiratory: no respiratory distress, no rales or rhonchi, clear to auscultation Gastrointestinal: No normoactive bowel sounds (hyperactive bowel sounds), No tenderness, No guarding, No distension Neurologic: AAOx3, sensation intact bilaterally, No weakness (motor 5/5 bilat LE ) Psychiatric: interacting appropriately, not anxious, not encephalopathic, thought process linear ICD10 Worksheet Patient Problems: Problems Problem Status Onset Neuroendocrine carcinoma metastatic to bone Acute Back pain Acute
--- NOTE | 2017-07-18 15:28 | ASMTCMCOM ---
CM Note CM Note Notes: PT/OT cleared pt today after his surgery. Anticipate d/c with no CM needs when medically cleared. Date Signed: 07/18/2017 03:27 PM Electronically Signed By:FLORES Patel
[2017-07-18] MEDS ORDERED: FLU VACC QS 2017-18 (3YR+)/PF 0.5 ML SYR (FLUARIX QUAD) IM ONE (16:23)
[2017-07-18] MEDS: ENOXAPARIN 40 MG/0.4 ML SYR SC SCH (17:29)
[2017-07-19] MEDS: DEXAMETHASONE 4 MG/ML VIAL IVP SCH ×2 (00:36→06:36)
[2017-07-19] MEDS: LACTULOSE 20 GM/30 ML UDCUP PO PRN ×2 (00:36→16:32)
[2017-07-19] MEDS: GABAPENTIN 300 MG CAP PO SCH ×3 (06:30→20:58)
--- NOTE | 2017-07-19 07:09 | NEUSURGPN ---
Date of Surgery: 07/17/17 Post Op Day: 2 Assessment/Plan: Assessment: 57 yo male that is s/p L3-L5 fusion with L3/4, 4/5 TLIF and resection/biopsy of L4 posterior mass POD #2 Plan: -doing well, voiding well on his own -pt with insomnia-placed decadron on taper and PO at this time. Added ambien while he tapers from the steroids -s/p resection of mass and fusion: pt with expected lower back pain that is well controlled with PO meds -PT/OT CPM -brace when out of bed -call with any questions or concerns -take medications as directed -RENO to bulb suction-still productive -HOB as tolerated -pt understands and agrees -possible dc tomorrow if better Subjective: Awake and alert. NAD. Eating/drinking and voiding. No f/c/n/v/d. No govea/neck/ chest/abd or gu complaints. Pt with insomnia issues Objective: AAO x 3, PERRLA/EOMI no droop CN 2-12 grossly intact +lt touch 5/5 BUE/BLE = CDI RENO in place Neuro Check Frequency: per routine Urinary Catheter in Place: No Catheter Insertion Date: 07/17/17 - Physician Discussed Patient with : [facility] Physical Exam - Vitals, I&O, Labs I and O 07/18/17 07/19/17 07/20/17 05:59 05:59 05:59 Intake Total 3600 1582 Output Total 690 995 Balance 2910 587 Intake: Oral (ml) 500 IV Intake (ml) 3600 IV Infused (ml) 1082 NS W/ 20 KCl/L 1,000 ml @ 882 100 mls/hr IV CONT DAO Rx#:[id number] ceFAZolin 2 GM/DEXTROSE 200 100 ml @ 200 mls/hr IV Q8HRS DAO Rx#:[id number] Output: Urine (ml) 300 650 Catheter 300 350 Urinal 300 Estimated Blood Loss (ml) 300 RENO Drain Output (ml) 90 345 Back Jhonatan Drummond 90 345 Other: Intake Quantity Yes Sufficient Number of Voids Toilet 3 Number of Stools Toilet 1 Vital Signs Temp Pulse Resp BP Pulse Ox 37.2 C 83 16 117/76 95 07/19/17 00:04 07/19/17 00:04 07/19/17 00:04 07/19/17 00:04 07/19/17 00:04 Laboratory Results 07/18/17 04:27 07/18/17 04:27 ICD10 Worksheet Patient Problems: Problems Problem Status Onset Back pain Acute Neuroendocrine carcinoma metastatic to bone Acute
[2017-07-19] MEDS ORDERED: ZOLPIDEM TARTRATE 5 MG TAB PO PRN (07:24)
[2017-07-19] MEDS ORDERED: *MD ORDERING ONLY-DEXAMETHASONE TAPER PO SCH (07:30)
[2017-07-19] MEDS: GABAPENTIN 100 MG CAP PO SCH ×3 (09:14→20:58)
[2017-07-19] MEDS: MULTIVITAMINS 1 EACH TAB PO SCH (09:16)
[2017-07-19] MEDS: FAMOTIDINE 20 MG TAB PO SCH ×2 (09:16→20:58)
[2017-07-19] MEDS: morphINE SR 15 MG TAB PO SCH ×2 (09:17→20:59)
[2017-07-19] MEDS: SENNOSIDES/DOCUSATE SODIUM TAB PO SCH ×2 (09:17→20:57)
[2017-07-19] MEDS: ENOXAPARIN 40 MG/0.4 ML SYR SC SCH (09:18)
[2017-07-19] MEDS: POLYETHYLENE GLYCOL 3350 17 GM PKT PO PRN (09:25)
[2017-07-19] MEDS: HYDROmorphONE/DILAUDID 2 MG TAB PO PRN ×2 (11:46→16:15)
--- NOTE | 2017-07-19 14:16 | HOSPPROG ---
Hospitalist Progress Note Assessment/Plan: Assessment: 57 yo M p/w intractable back pain in setting of neuroendocrine tumor, osseous metastases, and L4 cord compression requiring surgery Plan: 1. Intractable back pain. 2/2 osseous mets and cord compression w/ bowel and bladder symptoms, requiring urgent surgery - POD#2 L3-5 fusion, L 3-5 TLIF, L4 mass resection by Dr. Moctezuma - pain increasing today, cont ms contin 15 bid, PRN dilaudid PO w/ IV morphine as effective breakthrough - adjusted to PO dex today w/ sleep aid - ongoing RENO drain, continues to be productive - appreciate oncology consultation for ongoing care, sees Dr. Perez as outpt - x-rays w/ good alignment 2. Neuroendocrine carcinoma. With known metastatic disease, plans to start clinical trial soon. 3. Constipation. Acute on chronic s/p surgery w/ increase in pain Rx, moved bowels s/p mag citrate - cont regimen Diet - Regular Code - Full Ppx - SCDs Dispo - ADD 2/5, pending pain mgmt off IVs and less RENO drain output Subjective: severe pain in midlower back, had BMs Objective: Vital Signs Temp Pulse Resp BP Pulse Ox 37.1 C 90 16 107/64 98 07/19/17 07:56 07/19/17 07:56 07/19/17 07:56 07/19/17 07:56 07/19/17 07:56 Laboratory Results 07/18/17 04:27 07/18/17 04:27 07/18/17 07/19/17 07/20/17 05:59 05:59 05:59 Intake Total 3600 1582 Output Total 690 995 Balance 2910 587 - Pending Discharge Pending Discharge Within 24 Hours: Yes Pending Discharge Date: 07/20/17 Pending Discharge Time: 11:00 - Physical Exam Constitutional: appears nourished, uncomfortable, No not in pain (moderate), No chronically ill appearing Cardiovascular: regular rate and rhythym, no murmur, rub, or gallop, No edema Respiratory: no respiratory distress, no rales or rhonchi, clear to auscultation Gastrointestinal: normoactive bowel sounds, soft, non-tender abdomen, no palpable masses, No distension Neurologic: AAOx3, sensation intact bilaterally Psychiatric: interacting appropriately, not anxious, not encephalopathic, thought process linear ICD10 Worksheet Patient Problems: Problems Problem Status Onset Neuroendocrine carcinoma metastatic to bone Acute Back pain Acute
[2017-07-19] MEDS: DEXAMETHASONE 4 MG TAB PO SCH ×2 (14:30→20:59)
[2017-07-19] MEDS ORDERED: MAGNESIUM CITRATE 300 ML BOTTLE PO ONE (16:29)
[2017-07-20 00:32] VITALS: RESP 16
--- NOTE | 2017-07-20 07:48 | NEUSURGPN ---
Date of Surgery: 07/17/17 Post Op Day: 3 Assessment/Plan: Assessment: 57 yo male that is s/p L3-L5 fusion with L3/4, 4/5 TLIF and resection/biopsy of L4 posterior mass POD #3 Plan: -Patient doing well -pt with insomnia-placed decadron on taper and PO at this time. Added ambien while he tapers from the steroids -s/p resection of mass and fusion: pt with expected lower back pain that is well controlled with PO meds -PT/OT -HCT stable, 26.3 today, 26.2 two days ago -brace when out of bed -RENO to bulb suction-still productive -Post op xrays stable, Dr Moctezuma viewed xrays and does not have concern with L5 screw or undulations of the L1-2 endplates -patient may dc today from a neurosurgery standpoint if ok with medicine and oncology, will leave RENO in place and patient to call office in 2 days for instruction -discussed patient with Dr Moctezuma Subjective: Doing well, sitting in chair, pain controlled with oral medications Objective: AAO x 3, PERRLA/EOMI no droop CN 2-12 grossly intact +lt touch 5/5 BUE/BLE = CDI RENO in place Neuro Check Frequency: per routine Urinary Catheter in Place: No Catheter Insertion Date: 07/17/17 - Physician Discussed Patient with : [facility] Physical Exam - Vitals, I&O, Labs I and O 07/19/17 07/20/17 07/21/17 05:59 05:59 05:59 Intake Total 1582 700 Output Total 995 100 Balance 587 600 Intake: Oral (ml) 500 700 IV Infused (ml) 1082 NS W/ 20 KCl/L 1,000 ml @ 882 100 mls/hr IV CONT DAO Rx#:[id number] ceFAZolin 2 GM/DEXTROSE 200 100 ml @ 200 mls/hr IV Q8HRS DAO Rx#:[id number] Output: Urine (ml) 650 Catheter 350 Urinal 300 RENO Drain Output (ml) 345 100 Back Jhonatan Drummond 345 100 Other: Intake Quantity Yes Sufficient Number of Voids Toilet 3 3 Number of Stools Toilet 1 Vital Signs Temp Pulse Resp BP Pulse Ox 36.8 C 79 16 121/74 H 94 07/20/17 00:00 07/20/17 00:00 07/20/17 00:00 07/20/17 00:00 07/20/17 00:00 Laboratory Results 07/20/17 04:27 07/18/17 04:27 ICD10 Worksheet Patient Problems: Problems Problem Status Onset Back pain Acute Neuroendocrine carcinoma metastatic to bone Acute
[2017-07-20] MEDS ORDERED: MAGNESIUM CITRATE 300 ML BOTTLE PO ONE (08:15)
[2017-07-20] MEDS: GABAPENTIN 300 MG CAP PO SCH (08:18)
[2017-07-20] MEDS: morphINE SR 15 MG TAB PO SCH (08:19)
[2017-07-20] MEDS: MULTIVITAMINS 1 EACH TAB PO SCH (08:20)
[2017-07-20] MEDS: FAMOTIDINE 20 MG TAB PO SCH (08:20)
[2017-07-20] MEDS: GABAPENTIN 100 MG CAP PO SCH (08:20)
[2017-07-20] MEDS: SENNOSIDES/DOCUSATE SODIUM TAB PO SCH (08:20)
[2017-07-20] MEDS: ENOXAPARIN 40 MG/0.4 ML SYR SC SCH (08:20)
[2017-07-20] MEDS: POLYETHYLENE GLYCOL 3350 17 GM PKT PO PRN (08:30)
[2017-07-20 08:36] VITALS: BP 110/74; PULSE 85; TEMP 97.6; O2SAT 100
[2017-07-20] MEDS ORDERED: DEXAMETHASONE 4 MG TAB PO SCH (10:30)
[2017-07-20] MEDS: HYDROmorphONE/DILAUDID 2 MG TAB PO PRN (12:57)
[2017-07-20] MEDS: LACTULOSE 20 GM/30 ML UDCUP PO PRN (12:57)
--- NOTE | 2017-07-20 13:11 | GDS ---
[f rep st] DISCHARGE SUMMARY FINAL DIAGNOSES: 1. Cord compression with bowel and bladder symptoms. 2. Neuroendocrine carcinoma. 3. Constipation. PROCEDURES: L4-5 laminectomy with decompression of mass on 07/17/[address] Hyman. STUDIES PENDING AT TIME OF DISCHARGE: Pathology from mass compressing his spinal cord. HOSPITAL COURSE: This is a 57-year-old man who presented with severe back pain. He was found to hav e osseous metastatic disease in his spine. He was taken to the operating room the day after admissio n with debulking of his tumor. He has done well since then. He is on a Decadron taper. He has been started on long-acting morphine as well as oral Dilaudid with good pain control. He has been on p.o . medicines for the past 24 hours. He plans to start a clinical trial soon in [place]. FOLLOWUP: 1. Neurosurgery, call within 1-2 days if he has a RENO drain in place. Should also receive further in structions on tapering his Decadron. 2. Dr. Perez his primary oncologist within [address] Hyman in 2 weeks as a postop follow up. BILLING: I spent more than 30 minutes on the day of discharge coordinating care. /[id number]/MODL
[2017-07-21] MEDS ORDERED: DEXAMETHASONE 2 MG TAB PO SCH (10:30)
[2017-07-23] MEDS ORDERED: DEXAMETHASONE 2 MG TAB PO SCH (22:30)
== END 2017-07-20 13:56 | disposition home or self-care (01) | DRG 457 ==
LOC: INTOOBSV 23:33 → F1N 07-17 00:48 → F2N 07-17 15:30 → OBSVTOIN 07-17 18:50 → F3N 07-17 18:55
PROVIDERS: ADMIT Student in an Organized Health Care Education/Training Program; ATTEND Student in an Organized Health Care Education/Training Program
DX: C79.51 Secondary malignant neoplasm of bone (principal); C79.49 Secondary malignant neoplasm of other parts of nervous system; C7A.026 Malignant carcinoid tumor of the rectum; M48.061 Spinal stenosis, lumbar region without neurogenic claudication; K59.00 Constipation, unspecified; Z23 Encounter for immunization
CPT/HCPCS: 96374; 97116-GP; 97161-GP; 97165-GO; 97530-GP; C1713; G0008; G8978-GP-CJ; G8979-GP-CI; G8980-GP-CI; G8987-GO-CI; G8988-GO-CI; J0171; J0690; J1100; J1170; J1650; J2250; J2270; J2274; J2405; J2704; J3010

== ENCOUNTER 2017-07-24 15:23 | Emergency (ER) | payer OTHER ==
--- NOTE | 2017-07-24 16:01 | CPEKG ---
Heart Rate: 69 RR Interval: 870 P-R Interval: 152 QRSD Interval: 94 QT Interval: 428 QTC Interval: 459 P [place]: 73 QRS [place]: 79 T Wave [place]: 67 EKG Severity - BORDERLINE ECG - EKG Impression: SINUS RHYTHM EKG Impression: BORDERLINE T ABNORMALITIES, ANT-LAT LEADS Electronically Signed By: Tosha Horner 24-Jul-2017 21:00:53
[2017-07-24 16:14] LABS: PLATELET COUNT 469 10^3/uL (150-400)
[2017-07-24] MEDS ORDERED: IOPAMIDOL (ISOVUE 370) 100 ML BTL IV ONE (16:34)
--- NOTE | 2017-07-24 16:44 | EDPHY ---
H & P Time Seen by Provider: 07/24/17 15:55 HPI/ROS: CHIEF COMPLAINT: Left-sided chest pain HISTORY OF PRESENT ILLNESS: 57-year-old male with neuroendocrine carcinoma presents with left-sided chest pain. He underwent a surgical decompression at L4 -5 1 week ago. He had been doing well well after surgery until yesterday, when he developed left-sided chest pain. The pain increases with deep inspiration and with movement. Associated with shortness of breath. He called his neurosurgeon today, who referred him to the emergency department for evaluation for pulmonary embolism. He has chronic right lower extremity lymphedema, without recent change in swelling. No prior history of thromboembolism. REVIEW OF SYSTEMS: Constitutional: No fever, no recent illness Eyes: No visual changes ENT: No sore throat Respiratory: No cough Gastrointestinal: No nausea, no vomiting, no abdominal pain Genitourinary: no dysuria Musculoskeletal: Right leg swelling Skin: No rash Neurological: No headache Psychiatric: No depression Past Medical/Surgical History: Neuroendocrine tumor Social History: No recent alcohol. Nonsmoker. Lives in [place]. Single. Smoking Status: Never smoked Physical Exam: General Appearance: Alert, pleasant and talkative Eyes: Pupils equal and round, no conjunctival pallor or injection ENT, Mouth: Mucous membranes moist Neck: Normal inspection Respiratory: Normal inspection, normal respiratory rate, Lungs are clear to auscultation Cardiovascular: Regular rate and rhythm, no murmur Gastrointestinal: Abdomen is soft and nontender Neurological: A&O, nonfocal exam Skin: Warm and dry, no rash Extremities: Right lower extremity edema, compression stocking in place Psychiatric: Mood and affect normal Constitutional: Initial Vital Signs Temperature (C) 36.0 C 07/24/17 15:27 Heart Rate 84 07/24/17 15:27 Respiratory Rate 16 07/24/17 15:27 Blood Pressure 123/77 H 07/24/17 15:27 O2 Sat (%) 99 07/24/17 15:27 O2 Delivery Mode Room Air Allergies/Adverse Reactions: No Known Allergies Allergy (Verified 07/16/17 23:07) Home Medications: Medication Instructions Recorded Acetaminophen [Tylenol 325mg (*)] 325 mg PO DAILY PRN 07/16/17 Gabapentin [Neurontin 100 MG (*)] 100 mg PO TID #90 cap 07/16/17 Herbals/Supplements -Info Only 1 ea PO DAILY 07/16/17 Linaclotide [Linzess] 290 mcg PO DAILY PRN 07/16/17 Multivitamins [Multivitamin (*)] 1 each PO DAILY 07/16/17 Dexamethasone [Decadron 2 MG (*)] 2 mg PO Q12H tab 07/20/17 Dexamethasone [Decadron 2 MG (*)] 2 mg PO Q24H tab 07/20/17 HYDROmorphone HCL [Dilaudid 2 mg 2 - 4 mg PO Q4HRS PRN #60 tab 07/20/17 (*)] Methocarbamol [Robaxin 750 mg (*)] 750 mg PO QID PRN #30 tab 07/20/17 Polyethylene Glycol 3350 [Miralax 17 gm PO DAILY PRN pkt 07/20/17 17 gm (*)] Sennosides/Docusate Sodium 1 - 2 tab PO BID tab 07/20/17 [Senokot-S] Zolpidem Tartrate [Ambien 5MG (*)] 5 mg PO HS PRN #30 tab 07/20/17 morphINE SR [Ms Contin/Oramorph 15 15 mg PO BID #60 tab 07/20/17 mg (*)] Medical Decision Making - Diagnostics EKG Interpretation: EKG interpreted by me reveals normal sinus rhythm, rate 69, no ST or T segment changes. Imaging Results: Chest/Thorax CTA 07/24/17 15:56 Impression: 1. No visible pulmonary embolus. 2. Diffuse osseous metastases, with mild spinal canal narrowing at T5 secondary to extraosseous tumor extension. 3. Subpleural/paraspinal metastases, including a 1.2 cm right lower lobe metastasis. 4. Possible increase in hepatic metastases since 2017. 5. 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 6. Additional findings, as above. Findings discussed with Dr. Tosha Horner on 07/24/2017 at 17:46. Imaging: Discussed imaging studies w/ industrial economist Radiologist ED Course/Re-evaluation: Clinical presentation concerning for acute pulmonary embolism. Risk factors include recent surgery, chronic right lower extremity lymphedema and neuroendocrine tumor. Initial vital signs are normal. CT pulmonary angiogram ordered. 17:[address] Murphy, radiologist. CTA negative for PE. Reassessed patient. Discussed imaging results. I advised US RLE to r/o DVT. Patient declines this test given his history of lymphedema and states his leg does not feel differently from normal and he understands warning signs for DVT. Left sided chest pain likely chest wall pain or possibly from the pleural effusions. Plan to d/c home in good condition. Differential Diagnosis: Differential diagnosis includes though it is not limited to pneumonia, pneumothorax, pulmonary embolism, aortic dissection, pericarditis, acute coronary syndrome. - Data Points Laboratory Results: Laboratory Results 07/24/17 16:00 07/24/17 16:00 Departure - Departure Disposition: Home, Routine, Self-Care Clinical Impression: Chest pain Qualifiers: Chest pain type: other chest pain Qualified Code(s): R07.89 - Other chest pain ; R07.8 - Other chest pain Condition: Good Instructions: Chest Pain (ED) Additional Instructions: 1. There is no pulmonary embolism identified on your evaluation today. 2. Follow-up with your primary doctor in 2-3 days. 3. Return to the Emergency Department for fever, chest pain, shortness of breath , increasing pain or other worsening of condition. 4. You may take Tylenol, 650mg every 4-6 hours for pain relief. Referrals: Khurram Perez MD [Primary Care Provider] - As per Instructions Report Scribed for: Tosha Horner Report Scribed by: Magdalena Weir Date of Report: 07/24/17 Time of Report: 18:31 Physician Review and Approval Statement: 07/24/17 18:31 Portions of this note were transcribed by a pediatrician/medical doctor. I personally performed a history, physical exam, medical decision making, and confirmed accuracy of information the transcribed note.
[2017-07-24 16:50] VITALS: TEMP 98.1
[2017-07-24 18:57] VITALS: BP 136/80; PULSE 86; RESP 20; O2SAT 97
== END 2017-07-24 19:00 | disposition home or self-care (01) ==
DX: R07.89 Other chest pain (principal)
CPT/HCPCS: 71275; 93005; 99285; Q9967; 82947-QW

== ENCOUNTER → 2017-09-07 | Outpatient (CLI) | payer OTHER | LOC: BMCIMAGING 15:41 | PROVIDERS: ATTEND Nurse Practitioner | DX: R22.42 Localized swelling, mass and lump, left lower limb (principal) ==

== ENCOUNTER → 2017-10-12 | Outpatient (CLI) | payer OTHER | LOC: BMCIMAGING 13:28 | PROVIDERS: ATTEND Physician Assistant Surgical | DX: Z09 Encounter for follow-up examination after completed treatment for conditions other than malignant neoplasm (principal); Z98.1 Arthrodesis status ==

== ENCOUNTER → 2017-10-27 | Outpatient (CLI) | payer OTHER | LOC: FIMAGING 15:33 | PROVIDERS: ATTEND Nurse Practitioner | DX: M79.9 Soft tissue disorder, unspecified (principal) | CPT/HCPCS: 82397-90; 83519-90; 84260-90 ==

== ENCOUNTER → 2017-11-30 | Outpatient (CLI) | payer OTHER | LOC: FIMAGING 15:11 | PROVIDERS: ATTEND Physician Assistant Surgical | DX: Z98.1 Arthrodesis status (principal) | CPT/HCPCS: 72110; 72158; A9585 ==

== ENCOUNTER → 2018-07-07 | Outpatient (CLI) | payer OTHER | LOC: BMCIMAGING 13:17 | PROVIDERS: ATTEND Physician Assistant Surgical | DX: Z09 Encounter for follow-up examination after completed treatment for conditions other than malignant neoplasm (principal); Z98.1 Arthrodesis status; M51.36 Other intervertebral disc degeneration, lumbar region; M51.37 Other intervertebral disc degeneration, lumbosacral region ==

== ENCOUNTER → 2018-07-31 | Outpatient (CLI) | payer OTHER | LOC: FIMAGING 07:29 | PROVIDERS: ATTEND Physician Assistant Surgical | DX: C7A.1 Malignant poorly differentiated neuroendocrine tumors (principal); C79.51 Secondary malignant neoplasm of bone; Z98.1 Arthrodesis status | CPT/HCPCS: 72156; 72157; 72158; 72197; A9585 ==